=== PATIENT | female | born 1950 | race African-American/Black ===

== ENCOUNTER → 2016-03-29 | Outpatient (CLI) | payer OTHER ==
[~2016-03-29] VITALS: Ht 175.3 cm; Wt 124.1 kg
[~2016-03-29] MED LIST: AMLO-512 PO; CEPH500 PO; CLOP75 PO; CYCL10 PO; FURO20 PO; HYDR-3965 PO; INSU100V SQ; INSU100V12 SQ; METF10002 PO; METO50TA5 PO; MULT-1203 PO; SIMV-260 PO
[2016-03-29 08:29] VITALS: BP 147/79
== END | disposition home or self-care (01) ==
LOC: HBOWC 07:40
PROVIDERS: ATTEND Emergency Medicine
DX: E11.621 Type 2 diabetes mellitus with foot ulcer (principal); L97.522 Non-pressure chronic ulcer of other part of left foot with fat layer exposed; L84 Corns and callosities; E11.69 Type 2 diabetes mellitus with other specified complication; M86.8X7 Other osteomyelitis, ankle and foot; E11.22 Type 2 diabetes mellitus with diabetic chronic kidney disease; I13.0 Hypertensive heart and chronic kidney disease with heart failure and stage 1 through stage 4 chronic kidney disease, or unspecified chronic kidney disease; N18.9 Chronic kidney disease, unspecified; I50.9 Heart failure, unspecified; E11.51 Type 2 diabetes mellitus with diabetic peripheral angiopathy without gangrene; E78.5 Hyperlipidemia, unspecified; E66.9 Obesity, unspecified; M79.675 Pain in left toe(s); Z79.4 Long term (current) use of insulin; Z89.422 Acquired absence of other left toe(s)
CPT/HCPCS: 11055; 97597

== ENCOUNTER → 2016-04-04 | Outpatient (CLI) | payer OTHER ==
[2016-04-04 14:23] VITALS: BP 150/67
== END | disposition home or self-care (01) ==
LOC: HBOWC 12:19
PROVIDERS: ATTEND Emergency Medicine
DX: E11.621 Type 2 diabetes mellitus with foot ulcer (principal); L97.522 Non-pressure chronic ulcer of other part of left foot with fat layer exposed; M17.12 Unilateral primary osteoarthritis, left knee; L84 Corns and callosities; E11.22 Type 2 diabetes mellitus with diabetic chronic kidney disease; I13.0 Hypertensive heart and chronic kidney disease with heart failure and stage 1 through stage 4 chronic kidney disease, or unspecified chronic kidney disease; N18.9 Chronic kidney disease, unspecified; I50.9 Heart failure, unspecified; E78.5 Hyperlipidemia, unspecified; E66.9 Obesity, unspecified; E11.69 Type 2 diabetes mellitus with other specified complication; M86.8X7 Other osteomyelitis, ankle and foot; E11.51 Type 2 diabetes mellitus with diabetic peripheral angiopathy without gangrene; Z89.422 Acquired absence of other left toe(s); Z79.4 Long term (current) use of insulin
CPT/HCPCS: 93922; 97597

== ENCOUNTER → 2016-04-18 | Outpatient (CLI) | payer OTHER ==
[~2016-04-18] MED LIST changes: +LIDOCAINE HCL 2% 5 ML JELLY TP ONE
[2016-04-18 11:00] VITALS: BP 147/73
== END | disposition home or self-care (01) ==
LOC: HBOWC 10:14
PROVIDERS: ATTEND Emergency Medicine
DX: E11.621 Type 2 diabetes mellitus with foot ulcer (principal); L97.524 Non-pressure chronic ulcer of other part of left foot with necrosis of bone; E11.69 Type 2 diabetes mellitus with other specified complication; M86.8X7 Other osteomyelitis, ankle and foot; E11.22 Type 2 diabetes mellitus with diabetic chronic kidney disease; I12.9 Hypertensive chronic kidney disease with stage 1 through stage 4 chronic kidney disease, or unspecified chronic kidney disease; N18.9 Chronic kidney disease, unspecified; E11.51 Type 2 diabetes mellitus with diabetic peripheral angiopathy without gangrene; M17.12 Unilateral primary osteoarthritis, left knee; E66.9 Obesity, unspecified; L84 Corns and callosities
CPT/HCPCS: 97597

== ENCOUNTER → 2016-04-25 | Outpatient (CLI) | payer OTHER ==
[~2016-04-25] MED LIST changes: -LIDOCAINE HCL 2% 5 ML JELLY TP ONE
[2016-04-25 12:22] VITALS: BP 149/77
== END | disposition home or self-care (01) ==
LOC: HBOWC 10:39
PROVIDERS: ATTEND Emergency Medicine
DX: E11.621 Type 2 diabetes mellitus with foot ulcer (principal); L97.524 Non-pressure chronic ulcer of other part of left foot with necrosis of bone; E11.69 Type 2 diabetes mellitus with other specified complication; M86.8X7 Other osteomyelitis, ankle and foot; E11.40 Type 2 diabetes mellitus with diabetic neuropathy, unspecified; E11.22 Type 2 diabetes mellitus with diabetic chronic kidney disease; E11.51 Type 2 diabetes mellitus with diabetic peripheral angiopathy without gangrene; I12.9 Hypertensive chronic kidney disease with stage 1 through stage 4 chronic kidney disease, or unspecified chronic kidney disease; N18.4 Chronic kidney disease, stage 4 (severe); E66.9 Obesity, unspecified; E78.5 Hyperlipidemia, unspecified; Z79.4 Long term (current) use of insulin
CPT/HCPCS: 11042

== ENCOUNTER → 2016-05-02 | Outpatient (CLI) | payer OTHER ==
[2016-05-02 11:14] VITALS: BP 129/58
== END | disposition home or self-care (01) ==
LOC: HBOWC 10:57
PROVIDERS: ATTEND Emergency Medicine
DX: E11.621 Type 2 diabetes mellitus with foot ulcer (principal); L97.524 Non-pressure chronic ulcer of other part of left foot with necrosis of bone; E11.69 Type 2 diabetes mellitus with other specified complication; M86.8X7 Other osteomyelitis, ankle and foot; L84 Corns and callosities; E11.40 Type 2 diabetes mellitus with diabetic neuropathy, unspecified; E11.22 Type 2 diabetes mellitus with diabetic chronic kidney disease; I13.0 Hypertensive heart and chronic kidney disease with heart failure and stage 1 through stage 4 chronic kidney disease, or unspecified chronic kidney disease; N18.4 Chronic kidney disease, stage 4 (severe); I50.9 Heart failure, unspecified; Z79.4 Long term (current) use of insulin; M19.90 Unspecified osteoarthritis, unspecified site
CPT/HCPCS: 97597

== ENCOUNTER → 2016-05-09 | Outpatient (CLI) | payer OTHER ==
[~2016-05-09] MED LIST changes: -SIMV-260 PO; +SIMV20 PO
[2016-05-09 11:15] VITALS: BP 128/56
== END | disposition home or self-care (01) ==
LOC: HBOWC 10:27
PROVIDERS: ATTEND Emergency Medicine
DX: E11.621 Type 2 diabetes mellitus with foot ulcer (principal); L97.524 Non-pressure chronic ulcer of other part of left foot with necrosis of bone; E11.69 Type 2 diabetes mellitus with other specified complication; M86.8X7 Other osteomyelitis, ankle and foot; L84 Corns and callosities; E11.51 Type 2 diabetes mellitus with diabetic peripheral angiopathy without gangrene; M17.12 Unilateral primary osteoarthritis, left knee; I13.0 Hypertensive heart and chronic kidney disease with heart failure and stage 1 through stage 4 chronic kidney disease, or unspecified chronic kidney disease; E11.22 Type 2 diabetes mellitus with diabetic chronic kidney disease; N18.4 Chronic kidney disease, stage 4 (severe); I50.9 Heart failure, unspecified; E11.40 Type 2 diabetes mellitus with diabetic neuropathy, unspecified; E78.5 Hyperlipidemia, unspecified; E66.9 Obesity, unspecified; Z89.421 Acquired absence of other right toe(s); Z79.4 Long term (current) use of insulin; Z89.412 Acquired absence of left great toe; Z89.422 Acquired absence of other left toe(s)
CPT/HCPCS: 97597

== ENCOUNTER → 2016-05-31 | Outpatient (CLI) | payer OTHER ==
[2016-05-31 10:30] VITALS: BP 135/68
== END | disposition home or self-care (01) ==
LOC: HBOWC 10:11
PROVIDERS: ATTEND Emergency Medicine
DX: E11.621 Type 2 diabetes mellitus with foot ulcer (principal); L97.521 Non-pressure chronic ulcer of other part of left foot limited to breakdown of skin; E11.69 Type 2 diabetes mellitus with other specified complication; M86.8X7 Other osteomyelitis, ankle and foot; F99 Mental disorder, not otherwise specified; L84 Corns and callosities; E11.22 Type 2 diabetes mellitus with diabetic chronic kidney disease; I13.0 Hypertensive heart and chronic kidney disease with heart failure and stage 1 through stage 4 chronic kidney disease, or unspecified chronic kidney disease; N18.4 Chronic kidney disease, stage 4 (severe); I50.20 Unspecified systolic (congestive) heart failure; E11.51 Type 2 diabetes mellitus with diabetic peripheral angiopathy without gangrene; E78.5 Hyperlipidemia, unspecified; E66.9 Obesity, unspecified; Z79.4 Long term (current) use of insulin; Z89.421 Acquired absence of other right toe(s); Z89.422 Acquired absence of other left toe(s)
CPT/HCPCS: 97597

== ENCOUNTER → 2016-06-08 | Outpatient (CLI) | payer OTHER | END | disposition home or self-care (01) | LOC: RADPV 09:15 | PROVIDERS: ATTEND Emergency Medicine | DX: E11.621 Type 2 diabetes mellitus with foot ulcer (principal); L97.529 Non-pressure chronic ulcer of other part of left foot with unspecified severity; M86.8X8 Other osteomyelitis, other site; I73.9 Peripheral vascular disease, unspecified; I70.203 Unspecified atherosclerosis of native arteries of extremities, bilateral legs | CPT/HCPCS: 93880; 93925 ==

== ENCOUNTER → 2016-07-20 | Outpatient (CLI) | payer OTHER ==
[~2016-07-20] MED LIST changes: +SIMV-260 PO; -SIMV20 PO
[2016-07-20 10:50] VITALS: BP 154/76
== END | disposition home or self-care (01) ==
LOC: HBOWC 10:22
PROVIDERS: ATTEND Emergency Medicine
DX: E11.621 Type 2 diabetes mellitus with foot ulcer (principal); L97.521 Non-pressure chronic ulcer of other part of left foot limited to breakdown of skin; E11.69 Type 2 diabetes mellitus with other specified complication; M86.8X7 Other osteomyelitis, ankle and foot; E11.51 Type 2 diabetes mellitus with diabetic peripheral angiopathy without gangrene; L84 Corns and callosities; E78.5 Hyperlipidemia, unspecified; F99 Mental disorder, not otherwise specified; E66.9 Obesity, unspecified; E11.22 Type 2 diabetes mellitus with diabetic chronic kidney disease; I13.0 Hypertensive heart and chronic kidney disease with heart failure and stage 1 through stage 4 chronic kidney disease, or unspecified chronic kidney disease; N18.4 Chronic kidney disease, stage 4 (severe); I50.9 Heart failure, unspecified; Z79.4 Long term (current) use of insulin; Z89.421 Acquired absence of other right toe(s); Z89.422 Acquired absence of other left toe(s)
CPT/HCPCS: 97597

== ENCOUNTER → 2016-08-08 | Outpatient (CLI) | payer OTHER ==
[2016-08-08 10:45] VITALS: BP 123/71
== END | disposition home or self-care (01) ==
LOC: HBOWC 10:38
PROVIDERS: ATTEND Emergency Medicine Undersea and Hyperbaric Medicine
DX: E11.621 Type 2 diabetes mellitus with foot ulcer (principal); L97.521 Non-pressure chronic ulcer of other part of left foot limited to breakdown of skin; E11.22 Type 2 diabetes mellitus with diabetic chronic kidney disease; I13.0 Hypertensive heart and chronic kidney disease with heart failure and stage 1 through stage 4 chronic kidney disease, or unspecified chronic kidney disease; N18.4 Chronic kidney disease, stage 4 (severe); I50.9 Heart failure, unspecified; E66.9 Obesity, unspecified; E11.69 Type 2 diabetes mellitus with other specified complication; M86.8X7 Other osteomyelitis, ankle and foot; E11.51 Type 2 diabetes mellitus with diabetic peripheral angiopathy without gangrene; L84 Corns and callosities; Z89.422 Acquired absence of other left toe(s); Z79.4 Long term (current) use of insulin; Z89.421 Acquired absence of other right toe(s)
CPT/HCPCS: 97597

== ENCOUNTER → 2016-09-03 | Outpatient (CLI) | payer OTHER ==
[2016-09-03 11:39] VITALS: BP 142/67
== END | disposition home or self-care (01) ==
LOC: HBOWC 10:46
PROVIDERS: ATTEND Emergency Medicine Undersea and Hyperbaric Medicine
DX: E11.621 Type 2 diabetes mellitus with foot ulcer (principal); L97.521 Non-pressure chronic ulcer of other part of left foot limited to breakdown of skin; E11.22 Type 2 diabetes mellitus with diabetic chronic kidney disease; I13.0 Hypertensive heart and chronic kidney disease with heart failure and stage 1 through stage 4 chronic kidney disease, or unspecified chronic kidney disease; N18.4 Chronic kidney disease, stage 4 (severe); I50.9 Heart failure, unspecified; E66.9 Obesity, unspecified; E11.69 Type 2 diabetes mellitus with other specified complication; M86.8X7 Other osteomyelitis, ankle and foot; E11.51 Type 2 diabetes mellitus with diabetic peripheral angiopathy without gangrene; E78.5 Hyperlipidemia, unspecified; Z79.4 Long term (current) use of insulin; Z89.422 Acquired absence of other left toe(s); Z89.421 Acquired absence of other right toe(s)
CPT/HCPCS: 97597

== ENCOUNTER → 2016-09-17 | Outpatient (CLI) | payer OTHER ==
[2016-09-17 11:37] VITALS: BP 154/69
== END | disposition home or self-care (01) ==
LOC: HBOWC 10:47
PROVIDERS: ATTEND Emergency Medicine
DX: E11.621 Type 2 diabetes mellitus with foot ulcer (principal); L97.521 Non-pressure chronic ulcer of other part of left foot limited to breakdown of skin; E11.22 Type 2 diabetes mellitus with diabetic chronic kidney disease; I13.0 Hypertensive heart and chronic kidney disease with heart failure and stage 1 through stage 4 chronic kidney disease, or unspecified chronic kidney disease; N18.4 Chronic kidney disease, stage 4 (severe); I50.9 Heart failure, unspecified; E78.5 Hyperlipidemia, unspecified; E66.9 Obesity, unspecified; E11.69 Type 2 diabetes mellitus with other specified complication; M86.8X7 Other osteomyelitis, ankle and foot; E11.51 Type 2 diabetes mellitus with diabetic peripheral angiopathy without gangrene; B35.1 Tinea unguium; Z89.422 Acquired absence of other left toe(s); Z79.4 Long term (current) use of insulin; Z89.421 Acquired absence of other right toe(s); L84 Corns and callosities
CPT/HCPCS: 11720; 97597

== ENCOUNTER → 2016-10-01 | Outpatient (CLI) | payer OTHER ==
[2016-10-01 10:55] VITALS: BP 143/60
== END | disposition home or self-care (01) ==
LOC: HBOWC 10:43
PROVIDERS: ATTEND Emergency Medicine
DX: E11.621 Type 2 diabetes mellitus with foot ulcer (principal); L97.521 Non-pressure chronic ulcer of other part of left foot limited to breakdown of skin; E11.22 Type 2 diabetes mellitus with diabetic chronic kidney disease; E11.51 Type 2 diabetes mellitus with diabetic peripheral angiopathy without gangrene; I13.0 Hypertensive heart and chronic kidney disease with heart failure and stage 1 through stage 4 chronic kidney disease, or unspecified chronic kidney disease; N18.4 Chronic kidney disease, stage 4 (severe); I50.9 Heart failure, unspecified; E78.5 Hyperlipidemia, unspecified; E66.9 Obesity, unspecified; E11.69 Type 2 diabetes mellitus with other specified complication; M86.8X7 Other osteomyelitis, ankle and foot; B35.1 Tinea unguium; L84 Corns and callosities; Z89.421 Acquired absence of other right toe(s); Z89.422 Acquired absence of other left toe(s); Z79.4 Long term (current) use of insulin

== ENCOUNTER 2017-02-07 08:36 | Inpatient (IN) | payer OTHER ==
[~2017-02-07] VITALS: Ht 172.7 cm; Wt 128.1 kg
[~2017-02-07 08:36] MED LIST changes: +METO50TA18 PO; -METO50TA5 PO
[2017-02-07] MEDS ORDERED: LISI-662 PO (08:50)
[2017-02-07] MEDS ORDERED: BACL10TA PO (08:50)
[2017-02-07] MEDS ORDERED: GABA-531 PO ×2 (08:52)
[2017-02-07 09:06] LABS: ABG A-A DIFF O2 387.9 mmHg (10-20.0); ABG BASE EXCESS -6.5 mmol/L (-2.0-3.0); ABG HCO3 19.3 mmol/L (22.0-26.0); ABG OXYHEMOGLOBIN 93.7 % (94.0-100.0); ABG PCO2 46 mmHg (35-45); ABG PH 7.265 (7.35-7.450)
[2017-02-07 09:07] LABS: ALLEN TEST, BLOOD GAS Positive; IPAP, BG 14 cm H2O
[2017-02-07 09:07] LABS: BASOPHILS # (AUTO) 0.03 K/uL (0.00-0.20); BASOPHILS % (AUTO) 0.3 % (0.0-2.0); EOSINOPHILS # (AUTO) 0.13 K/uL (0.00-0.70); EOSINOPHILS % (AUTO) 1.02 % (1.0-6.0); HEMATOCRIT 38.5 % (36-46); HEMOGLOBIN 12.4 g/dL (12.0-16.0); LYMPHOCYTES # (AUTO) 4.8 K/uL (1.0-4.8); LYMPHOCYTES % (AUTO) 37.3 % (22.0-44.0); MEAN CORPUSCULAR HEMOGLOBIN 30.3 pg (26.0-34.0); MEAN CORPUSCULAR HGB CONC 32.1 G/dL (31.0-37.0); MEAN CORPUSCULAR VOLUME 94 fL (80-100); MONOCYTES # (AUTO) 0.7 K/uL (0.1-1.0); MONOCYTES % (AUTO) 5.8 % (2.0-9.0); NEUTROPHILS # (AUTO) 7.1 K/uL (1.8-7.7); NEUTROPHILS % (AUTO) 55.7 % (40.0-70.0); PLATELET COUNT (AUTO) 312 K/uL (150-450); RED BLOOD CELL COUNT(AUTO) 4.09 MIL/uL (4.00-5.20); RED CELL DISTRIBUTION WIDTH 15.3 % (11.5-14.5); WHITE BLOOD COUNT (AUTO) 12.8 K/uL (4.5-11.0)
[2017-02-07 09:16] LABS: CALCIUM, TOTAL 9.5 mg/dL (8.8-10.5); CREATININE 1.38 mg/dL (0.60-1.30); POTASSIUM 4.3 mmol/L (3.5-5.1)
[2017-02-07 09:17] LABS: INR 0.9 (0.9-1.1); PROTHROMBIN TIME 9.7 SEC (9.4-11.6)
[2017-02-07] MEDS ORDERED: IOVERSOL 350 MG/ML 150 ML VIAL ONE (09:41)
[2017-02-07 09:42] LABS: ALBUMIN 3.2 g/dL (3.4-5.0); BILIRUBIN,TOTAL 0.5 mg/dL (0.1-1.0); CREATINE KINASE MB 7.3 ng/mL (0-5); TOTAL PROTEIN, SERUM 8.1 g/dL (6.4-8.2)
[2017-02-07] MEDS ORDERED: FUROSEMIDE 40 MG/4 ML VIAL IVP ONE (09:45)
[2017-02-07 09:48] LABS: APPEARANCE,URINE CLEAR (CLEAR); GLUCOSE, URINE (UA) 100 mg/dL (NEGATIVE); INFLUENZA TYPE B NEGATIVE FOR TYPE B (NEGATIVE); KETONES,URINE NEGATIVE (NEGATIVE); LEUKOCYTE ESTERASE ,URINE SMALL (NEGATIVE); OCCULT BLOOD,URINE LARGE (NEGATIVE); PROTEIN,URINE POS 1+ (NEGATIVE)
[2017-02-07 09:49] LABS: ADD UA MICROSCOPIC YES
[2017-02-07 10:01] LABS: SQUAMOUS EPITHELIAL CELL,UR Few /LPF (None Seen)
[2017-02-07] MEDS ORDERED: ALBUTEROL SULFATE 2.5 MG/0.5 ML NEB SOLUTION NEB PRN (11:00)
[2017-02-07] MEDS ORDERED: BISACODYL 10 MG RECTAL RECTAL SUPPOSITORY PR PRN (11:00)
[2017-02-07] MEDS ORDERED: IPRATROPIUM BROMIDE 0.5 MG/2.5 ML NEB SOLUTION NEB PRN (11:00)
[2017-02-07] MEDS ORDERED: METOPROLOL TARTRATE 25 MG TABLET PO SCH (11:15)
[2017-02-07] MEDS ORDERED: DEXTROSE 50%-WATER 25 GM/50 ML SYRINGE IVP PRN (11:15)
[2017-02-07] MEDS: ACETAMINOPHEN 325 MG TABLET PO PRN (12:07)
[2017-02-07 12:19] VITALS: BP 117/74
[2017-02-07] MEDS: INSULIN ASPART 100 UNITS/ML SQ PRN ×2 (14:00→20:30)
[2017-02-07] MEDS ORDERED: PNEUMOCOCCAL VACCINE POLYVALENT 0.5 ML VIAL [PPSV23] IM ONE (14:15)
[2017-02-07] MEDS ORDERED: INFLUENZA VIRUS VACCINE QVS 2017-18 (3YR+)/PF 60 MCG/0.5 ML SYRINGE IM ONE (14:15)
[2017-02-07] MEDS ORDERED: SODIUM CHLORIDE 0.9% 250 ML IV ONE (14:56)
[2017-02-07 14:59] VITALS: BP 122/66
[2017-02-07] MEDS: HydrALAZINE HCL 10 MG TABLET PO SCH ×2 (15:40→20:09)
[2017-02-07] MEDS: BUMETANIDE 0.25 MG/ML 4 ML VIAL IVP SCH (15:40)
[2017-02-07] MEDS: ISOSORBIDE DINITRATE 20 MG TABLET PO SCH ×2 (15:40→20:09)
[2017-02-07] MEDS: HEPARIN SODIUM,PORCINE 5,000 UNITS/ML VIAL SQ SCH (15:41)
[2017-02-07] MEDS: CefTRIAXone 1 GM/DEXTROSE 50 ML IV SCH (15:41)
[2017-02-07 19:31] VITALS: BP 105/48
[2017-02-07] MEDS: ATORVASTATIN CALCIUM 20 MG TABLET PO SCH (20:09)
[2017-02-07] MEDS: DOCUSATE SODIUM 100 MG CAPSULE PO SCH (20:09)
[2017-02-07] MEDS: INSULIN DETEMIR 100 UNITS/ML SQ SCH (20:28)
[2017-02-07] MEDS ORDERED: FUROSEMIDE 20 MG/2 ML VIAL IVP SCH (21:00)
[2017-02-07] MEDS ORDERED: ATORVASTATIN CALCIUM 20 MG TABLET PO SCH (21:00)
[2017-02-07 23:34] VITALS: BP 113/51
[2017-02-08] MEDS: HEPARIN SODIUM,PORCINE 5,000 UNITS/ML VIAL SQ SCH ×3 (00:01→16:53)
[2017-02-08] MEDS: ACETAMINOPHEN 325 MG TABLET PO PRN ×3 (04:18→20:51)
[2017-02-08 04:47] VITALS: BP 102/76
[2017-02-08 05:28] LABS: GLUCOSE,POINT OF CARE 119 MG/DL (70-110)
[2017-02-08 07:37] VITALS: BP 128/68
[2017-02-08] MEDS: DOCUSATE SODIUM 100 MG CAPSULE PO SCH ×2 (08:29→21:10)
[2017-02-08] MEDS: PANTOPRAZOLE SODIUM 40 MG DR TABLET PO SCH (08:29)
[2017-02-08] MEDS: HydrALAZINE HCL 10 MG TABLET PO SCH ×3 (08:29→20:31)
[2017-02-08] MEDS: ISOSORBIDE DINITRATE 20 MG TABLET PO SCH ×3 (08:30→21:00)
[2017-02-08] MEDS: BUMETANIDE 0.25 MG/ML 4 ML VIAL IVP SCH ×2 (08:30)
[2017-02-08] MEDS: ASPIRIN 81 MG CHEWABLE TABLET PO SCH (08:30)
[2017-02-08 10:01] LABS: CALCIUM, TOTAL 8.8 mg/dL (8.8-10.5); CREATININE 1.39 mg/dL (0.60-1.30)
[2017-02-08 11:11] VITALS: BP 104/62
[2017-02-08 12:27] LABS: GLUCOSE,POINT OF CARE 156 MG/DL (70-110)
[2017-02-08 12:27] LABS: GLUCOSE COMMENT 1 Received Meds; GLUCOSE,POINT OF CARE 206 MG/DL (70-110)
[2017-02-08 12:27] LABS: GLUCOSE,POINT OF CARE 118 MG/DL (70-110)
[2017-02-08] MEDS: INSULIN ASPART 100 UNITS/ML SQ PRN ×3 (13:41→21:12)
[2017-02-08] MEDS: CefTRIAXone 1 GM/DEXTROSE 50 ML IV SCH (13:42)
[2017-02-08 15:14] VITALS: BP 135/67
[2017-02-08 19:32] VITALS: BP 107/56
[2017-02-08 19:47] LABS: GLUCOSE,POINT OF CARE 195 MG/DL (70-110)
[2017-02-08 19:47] LABS: GLUCOSE,POINT OF CARE 213 MG/DL (70-110)
[2017-02-08] MEDS: BUMETANIDE 1 MG TABLET PO SCH (20:51)
[2017-02-08] MEDS: ATORVASTATIN CALCIUM 20 MG TABLET PO SCH (21:10)
[2017-02-08] MEDS: INSULIN DETEMIR 100 UNITS/ML SQ SCH (21:30)
[2017-02-08 23:35] VITALS: BP 122/65
[2017-02-09] MEDS: ISOSORBIDE DINITRATE 20 MG TABLET PO SCH ×2 (00:22→08:42)
[2017-02-09] MEDS: HydrALAZINE HCL 10 MG TABLET PO SCH ×2 (00:22→08:42)
[2017-02-09] MEDS: HEPARIN SODIUM,PORCINE 5,000 UNITS/ML VIAL SQ SCH ×2 (00:23→08:42)
[2017-02-09] MEDS ORDERED: GuaiFENesin/CODEINE [SUGAR FREE] 200-20MG/10 ML SYRUP UDCUP PO PRN (02:15)
[2017-02-09 04:06] VITALS: BP 141/71
[2017-02-09 05:45] LABS: BASOPHILS % (AUTO) 1.1 % (0.0-2.0); EOSINOPHILS % (AUTO) 1.9 % (1.0-6.0); HEMATOCRIT 31.3 % (36-46); HEMOGLOBIN 10.7 g/dL (12.0-16.0); LYMPHOCYTES # (AUTO) 2.5 K/uL (1.0-4.8); LYMPHOCYTES % (AUTO) 29.8 % (22.0-44.0); MEAN CORPUSCULAR HEMOGLOBIN 31.5 pg (26.0-34.0); MEAN CORPUSCULAR VOLUME 93 fL (80-100); MONOCYTES # (AUTO) 0.8 K/uL (0.1-1.0); MONOCYTES % (AUTO) 9.6 % (2.0-9.0); NEUTROPHILS # (AUTO) 4.8 K/uL (1.8-7.7); NEUTROPHILS % (AUTO) 57.6 % (40.0-70.0); PLATELET COUNT (AUTO) 280 K/uL (150-450); RED BLOOD CELL COUNT(AUTO) 3.38 MIL/uL (4.00-5.20); RED CELL DISTRIBUTION WIDTH 14.8 % (11.5-14.5); WHITE BLOOD COUNT (AUTO) 8.4 K/uL (4.5-11.0)
[2017-02-09 05:47] LABS: GLUCOSE COMMENT 1 Received Meds; GLUCOSE,POINT OF CARE 259 MG/DL (70-110)
[2017-02-09 05:58] LABS: CALCIUM, TOTAL 8.8 mg/dL (8.8-10.5); CREATININE 1.45 mg/dL (0.60-1.30)
[2017-02-09] MEDS: INSULIN ASPART 100 UNITS/ML SQ PRN ×2 (06:08→11:44)
[2017-02-09 07:21] VITALS: BP 138/76
[2017-02-09] MEDS: BUMETANIDE 1 MG TABLET PO SCH (08:42)
[2017-02-09] MEDS: DOCUSATE SODIUM 100 MG CAPSULE PO SCH (08:42)
[2017-02-09] MEDS: ASPIRIN 81 MG CHEWABLE TABLET PO SCH (08:42)
[2017-02-09] MEDS: ACETAMINOPHEN 325 MG TABLET PO PRN ×2 (08:43→13:39)
[2017-02-09] MEDS: PANTOPRAZOLE SODIUM 40 MG DR TABLET PO SCH (08:43)
[2017-02-09] MEDS ORDERED: BUME1TAB17 PO (11:16)
[2017-02-09] MEDS ORDERED: INSU100V12 SQ (11:17)
[2017-02-09 11:34] VITALS: BP 112/57
[2017-02-09] MEDS: CefTRIAXone 1 GM/DEXTROSE 50 ML IV SCH (11:43)
[2017-02-09 13:53] LABS: GLUCOSE COMMENT 1 Received Meds; GLUCOSE,POINT OF CARE 191 MG/DL (70-110)
[2017-02-09 14:52] LABS: GLUCOSE COMMENT 1 Received Meds; GLUCOSE,POINT OF CARE 209 MG/DL (70-110)
[2017-03-05] MEDS ORDERED: METO25XL PO (11:55)
== END 2017-02-09 15:30 | disposition home or self-care (01) | DRG 291 ==
LOC: EMS 08:37 → 5S 11:45 → EMS 11:45 → 5S 12:12
PROVIDERS: ADMIT Internal Medicine; ATTEND Internal Medicine
PROC: 5A09357 Assistance with Respiratory Ventilation, Less than 24 Consecutive Hours, Continuous Positive Airway Pressure (ICD-10-PCS; principal; 2017-02-07)
DX: I13.0 Hypertensive heart and chronic kidney disease with heart failure and stage 1 through stage 4 chronic kidney disease, or unspecified chronic kidney disease (principal); J96.01 Acute respiratory failure with hypoxia; E87.2 Acidosis; I50.23 Acute on chronic systolic (congestive) heart failure; Z68.41 Body mass index [BMI] 40.0-44.9, adult; E11.22 Type 2 diabetes mellitus with diabetic chronic kidney disease; E11.51 Type 2 diabetes mellitus with diabetic peripheral angiopathy without gangrene; I42.9 Cardiomyopathy, unspecified; E66.01 Morbid (severe) obesity due to excess calories; E11.65 Type 2 diabetes mellitus with hyperglycemia; E78.5 Hyperlipidemia, unspecified; F41.1 Generalized anxiety disorder; I25.10 Atherosclerotic heart disease of native coronary artery without angina pectoris; N18.3 Chronic kidney disease, stage 3 (moderate); Z83.3 Family history of diabetes mellitus; Z87.891 Personal history of nicotine dependence; Z90.710 Acquired absence of both cervix and uterus; Z79.02 Long term (current) use of antithrombotics/antiplatelets; Z79.84 Long term (current) use of oral hypoglycemic drugs; Z79.899 Other long term (current) drug therapy; Z79.891 Long term (current) use of opiate analgesic; Z90.49 Acquired absence of other specified parts of digestive tract
CPT/HCPCS: 51702; 71275; 82805; 82962; 87086; 87804; 90471; 93005; 93306; 94660; 96365; 96366; 96372; 96374; 96375; 99291; J0696; J1644; J1940; J3490; J7050

== ENCOUNTER 2017-05-06 10:01 | Emergency (ER) | payer OTHER ==
[~2017-05-06] VITALS: Ht 175.3 cm; Wt 120.0 kg
[~2017-05-06 10:01] MED LIST changes: +BACL10TA PO; +BUME1TAB17 PO; -CEPH500 PO; -CYCL10 PO; -FURO20 PO; -HYDR-3965 PO; -METF10002 PO; +METO25XL PO; -METO50TA18 PO; -MULT-1203 PO
[2017-05-06 10:32] LABS: GLUCOSE,POINT OF CARE 156 MG/DL (70-110)
[2017-05-06] MEDS ORDERED: METO25 PO (10:56)
[2017-05-06] MEDS ORDERED: ASPI-1182 PO (10:56)
[2017-05-06] MEDS ORDERED: FAMO20 PO (10:56)
[2017-05-06] MEDS ORDERED: BUSP5TAB20 PO (10:56)
[2017-05-06] MEDS ORDERED: ATOR40TA28 PO (10:56)
[2017-05-06] MEDS ORDERED: LORazepam 2 MG TABLET PO ONE (11:15)
[2017-05-06 12:38] VITALS: BP 149/73
== END 2017-05-06 12:59 | disposition home or self-care (01) ==
LOC: EMS 10:03
DX: F41.9 Anxiety disorder, unspecified (principal); I25.10 Atherosclerotic heart disease of native coronary artery without angina pectoris; E11.9 Type 2 diabetes mellitus without complications; E78.00 Pure hypercholesterolemia, unspecified; I10 Essential (primary) hypertension; Z95.1 Presence of aortocoronary bypass graft; Z79.4 Long term (current) use of insulin; Z79.82 Long term (current) use of aspirin
CPT/HCPCS: 82962; 99284

== ENCOUNTER 2017-05-20 05:57 | Emergency (ER) | payer OTHER ==
[~2017-05-20] VITALS: Ht 172.7 cm; Wt 118.2 kg
[~2017-05-20 05:57] MED LIST changes: +ASPI-1182 PO; +ATOR40TA28 PO; -BACL10TA PO; +BUSP5TAB20 PO; -CLOP75 PO; +FAMO20 PO; +METO25 PO; -METO25XL PO; -SIMV-260 PO
[2017-05-20 06:12] LABS: GLUCOSE,POINT OF CARE 189 MG/DL (70-110)
[2017-05-20] MEDS ORDERED: INSLAN SQ (06:13)
[2017-05-20] MEDS ORDERED: INSREG SQ (06:13)
[2017-05-20] MEDS ORDERED: PIPERACILLIN/TAZO 3.375 GM/D5W 50 ML IV ONE (06:30)
[2017-05-20] MEDS ORDERED: VANCOMYCIN HCL 1 GM/D5% WATER 200 ML IV ONE (06:30)
[2017-05-20] MEDS ORDERED: HYDROCODONE/ACETAMINOPHEN 5-325 MG TABLET PO ONE (06:30)
[2017-05-20 07:11] LABS: BASOPHILS % (AUTO) 0.6 % (0.0-2.0); EOSINOPHILS % (AUTO) 0.7 % (1.0-6.0); HEMATOCRIT 32.9 % (36-46); HEMOGLOBIN 10.8 g/dL (12.0-16.0); LYMPHOCYTES # (AUTO) 2.5 K/uL (1.0-4.8); MEAN CORPUSCULAR HEMOGLOBIN 27.2 pg (26.0-34.0); MEAN CORPUSCULAR HGB CONC 32.8 G/dL (31.0-37.0); MEAN CORPUSCULAR VOLUME 83 fL (80-100); MONOCYTES # (AUTO) 1.7 K/uL (0.1-1.0); MONOCYTES % (AUTO) 8.1 % (2.0-9.0); NEUTROPHILS # (AUTO) 16.2 K/uL (1.8-7.7); NEUTROPHILS % (AUTO) 78.6 % (40.0-70.0); PLATELET COUNT (AUTO) 344 K/uL (150-450); RED BLOOD CELL COUNT(AUTO) 3.97 MIL/uL (4.00-5.20); RED CELL DISTRIBUTION WIDTH 15.3 % (11.5-14.5)
[2017-05-20] MEDS ORDERED: IOVERSOL 350 MG/ML 100 ML VIAL ONE (07:15)
[2017-05-20 07:32] LABS: CALCIUM, TOTAL 9.2 mg/dL (8.8-10.5); CREATININE 1.17 mg/dL (0.60-1.30); POTASSIUM 3.3 mmol/L (3.5-5.1)
[2017-05-20 07:36] LABS: ALBUMIN 2.5 g/dL (3.4-5.0); BILIRUBIN,TOTAL 0.6 mg/dL (0.1-1.0); TOTAL PROTEIN, SERUM 7.8 g/dL (6.4-8.2)
[2017-05-20 07:57] LABS: LACTIC ACID 1.5 mmol/L (0.4-2.0)
[2017-05-20] MEDS ORDERED: KETOROLAC TROMETHAMINE 30 MG/ML VIAL IVP ONE (10:45)
[2017-05-20 11:10] VITALS: BP 123/61
== END 2017-05-20 11:56 | disposition short-term general hospital (02) ==
LOC: EMS 05:58
DX: L02.416 Cutaneous abscess of left lower limb (principal); I25.10 Atherosclerotic heart disease of native coronary artery without angina pectoris; E11.9 Type 2 diabetes mellitus without complications; E78.00 Pure hypercholesterolemia, unspecified; I10 Essential (primary) hypertension; Z95.1 Presence of aortocoronary bypass graft; Z79.82 Long term (current) use of aspirin; Z79.4 Long term (current) use of insulin
CPT/HCPCS: 36415; 73701; 80053; 82962; 83605; 85025; 87040; 93005; 96365; 96366; 96368; 96375; 99285; J1885; J2543; J3370; Q9967

== ENCOUNTER 2017-07-09 06:58 | Emergency (ER) | payer OTHER ==
[~2017-07-09] VITALS: Ht 175.3 cm; Wt 118.2 kg
[~2017-07-09 06:58] MED LIST changes: +INSLAN SQ; +INSREG SQ; -INSU100V SQ; -INSU100V12 SQ
[2017-07-09 07:38] LABS: BASOPHILS % (AUTO) 0.5 % (0.0-2.0); EOSINOPHILS % (AUTO) 1.8 % (1.0-6.0); HEMATOCRIT 36.1 % (36-46); HEMOGLOBIN 12.3 g/dL (12.0-16.0); LYMPHOCYTES # (AUTO) 2.4 K/uL (1.0-4.8); LYMPHOCYTES % (AUTO) 24.7 % (22.0-44.0); MEAN CORPUSCULAR HEMOGLOBIN 27.8 pg (26.0-34.0); MEAN CORPUSCULAR HGB CONC 34.1 G/dL (31.0-37.0); MEAN CORPUSCULAR VOLUME 82 fL (80-100); MONOCYTES # (AUTO) 0.8 K/uL (0.1-1.0); MONOCYTES % (AUTO) 7.8 % (2.0-9.0); NEUTROPHILS # (AUTO) 6.3 K/uL (1.8-7.7); NEUTROPHILS % (AUTO) 65.2 % (40.0-70.0); PLATELET COUNT (AUTO) 330 K/uL (150-450); RED BLOOD CELL COUNT(AUTO) 4.43 MIL/uL (4.00-5.20); RED CELL DISTRIBUTION WIDTH 18.1 % (11.5-14.5)
[2017-07-09 07:49] LABS: INR 0.9 (0.9-1.1); PROTHROMBIN TIME 9.8 SEC (9.4-11.6)
[2017-07-09 07:51] LABS: CALCIUM, TOTAL 9.4 mg/dL (8.8-10.5); CREATININE 1.14 mg/dL (0.60-1.30); POTASSIUM 3.9 mmol/L (3.5-5.1)
[2017-07-09 07:52] LABS: GLUCOSE,POINT OF CARE 82 MG/DL (70-110)
[2017-07-09 07:58] LABS: ALBUMIN 3.1 g/dL (3.4-5.0); BILIRUBIN,TOTAL 0.7 mg/dL (0.1-1.0); TOTAL PROTEIN, SERUM 8.4 g/dL (6.4-8.2)
[2017-07-09 11:35] VITALS: BP 147/76
== END 2017-07-09 11:38 | disposition home or self-care (01) ==
LOC: EMS 07:00
DX: J98.01 Acute bronchospasm (principal); F41.9 Anxiety disorder, unspecified; I11.0 Hypertensive heart disease with heart failure; I50.9 Heart failure, unspecified; E78.00 Pure hypercholesterolemia, unspecified; E11.9 Type 2 diabetes mellitus without complications; I25.10 Atherosclerotic heart disease of native coronary artery without angina pectoris
CPT/HCPCS: 93005; 99285

== ENCOUNTER 2017-07-14 13:51 | Inpatient (IN) | payer OTHER ==
[~2017-07-14] VITALS: Ht 172.7 cm; Wt 118.8 kg
[2017-07-14 14:18] LABS: GLUCOSE,POINT OF CARE 296 MG/DL (70-110)
[2017-07-14] MEDS ORDERED: 0.9% SODIUM CHLORIDE 10 ML SYRINGE IVP PRN ×3 (15:45→20:15)
[2017-07-14] MEDS ORDERED: VANCOMYCIN HCL 1 GM/D5% WATER 200 ML IV ONE (15:45)
[2017-07-14] MEDS ORDERED: PIPERACILLIN/TAZO 3.375 GM/D5W 50 ML IV ONE (15:45)
[2017-07-14 17:09] LABS: BASOPHILS % (AUTO) 0.4 % (0.0-2.0); EOSINOPHILS % (AUTO) 1.7 % (1.0-6.0); HEMATOCRIT 34.8 % (36-46); HEMOGLOBIN 11.5 g/dL (12.0-16.0); LYMPHOCYTES # (AUTO) 2.1 K/uL (1.0-4.8); MEAN CORPUSCULAR HGB CONC 33.1 G/dL (31.0-37.0); MEAN CORPUSCULAR VOLUME 82 fL (80-100); MONOCYTES # (AUTO) 1.4 K/uL (0.1-1.0); MONOCYTES % (AUTO) 11.4 % (2.0-9.0); NEUTROPHILS # (AUTO) 8.1 K/uL (1.8-7.7); NEUTROPHILS % (AUTO) 68.5 % (40.0-70.0); PLATELET COUNT (AUTO) 336 K/uL (150-450); RED BLOOD CELL COUNT(AUTO) 4.26 MIL/uL (4.00-5.20); RED CELL DISTRIBUTION WIDTH 18.2 % (11.5-14.5)
[2017-07-14 17:22] LABS: ANION GAP 10 mmol/L (8-16); CALCIUM, TOTAL 8.7 mg/dL (8.8-10.5); CARBON DIOXIDE 28 mmol/L (22-29); CHLORIDE 100 mmol/L (98-107); CREATININE 1.35 mg/dL (0.60-1.30); GLOMERULAR FILTR. RATE CALC 47 mL/min (>60); GLUCOSE,RANDOM 211 mg/dL (70-110); POTASSIUM 3.7 mmol/L (3.5-5.1); SODIUM SERUM 138 mmol/L (136-145); UREA NITROGEN, BLOOD 30 mg/dL (7-18)
[2017-07-14 17:33] LABS: LACTIC ACID 1.1 mmol/L (0.4-2.0)
[2017-07-14 17:42] LABS: ALANINE AMINOTRANSFERASE 26 U/L (12-78); ALBUMIN 2.9 g/dL (3.4-5.0); ALKALINE PHOSPHATASE 147 U/L (46-116); ASPARTATE AMINOTRANSFERASE 24 U/L (15-37); BILIRUBIN,TOTAL 0.5 mg/dL (0.1-1.0); CREATINE KINASE, TOTAL 490 U/L (26-192); TOTAL PROTEIN, SERUM 8.7 g/dL (6.4-8.2)
[2017-07-14 18:41] LABS: CREATINE KINASE MB 3.2 ng/mL (0-5)
[2017-07-14] MEDS ORDERED: ONDANSETRON HCL 4 MG/2 ML VIAL IVP PRN ×2 (19:30→20:15)
[2017-07-14] MEDS ORDERED: ACETAMINOPHEN 325 MG TABLET PO PRN ×2 (19:30→20:15)
[2017-07-14] MEDS ORDERED: DEXTROSE 50%-WATER 25 GM/50 ML SYRINGE IVP PRN (20:00)
[2017-07-14] MEDS ORDERED: SODIUM CHLORIDE 0.9% 1,000 ML IV SCH (20:00)
[2017-07-14] MEDS ORDERED: MAGNESIUM HYDROXIDE SUSPENSION 30 ML UDCUP PO PRN (20:15)
[2017-07-14] MEDS ORDERED: ALBUTEROL SULFATE 2.5 MG/0.5 ML NEB SOLUTION NEB PRN (20:15)
[2017-07-14] MEDS ORDERED: MORPHINE SULFATE 4 MG/ML SYRINGE IVP PRN (20:15)
[2017-07-14] MEDS ORDERED: BISACODYL 10 MG RECTAL RECTAL SUPPOSITORY PR PRN (20:15)
[2017-07-14] MEDS ORDERED: IPRATROPIUM BROMIDE 0.5 MG/2.5 ML NEB SOLUTION NEB PRN (20:15)
[2017-07-14 20:46] LABS: B-TYPE NATRIURETIC PEPTIDE 198 pg/mL (0-100)
[2017-07-14 21:16] LABS: ERYTHROCYTE SEDIMENTATION RATE 80 MM/HR (0-20)
[2017-07-14 21:36] VITALS: BP 111/54
[2017-07-14 23:25] VITALS: BP 110/57
[2017-07-14] MEDS: BusPIRone HCL 5 MG TABLET PO SCH (23:33)
[2017-07-14] MEDS: METOPROLOL TARTRATE 25 MG TABLET PO SCH (23:33)
[2017-07-14] MEDS: ATORVASTATIN CALCIUM 40 MG TABLET PO SCH (23:33)
[2017-07-14] MEDS: HYDROCODONE/ACETAMINOPHEN 5-325 MG TABLET PO PRN (23:34)
[2017-07-14] MEDS: HEPARIN SODIUM,PORCINE 5,000 UNITS/ML VIAL SQ SCH (23:37)
[2017-07-14] MEDS: FAMOTIDINE 20 MG TABLET PO SCH (23:46)
[2017-07-14] MEDS: INSULIN LISPRO 100 UNITS/ML SQ PRN (23:51)
[2017-07-14] MEDS ORDERED: SODIUM CHLORIDE 0.9% 100 ML ONE (23:58)
[2017-07-15] MEDS: PIPERACILLIN/TAZO 3.375 GM/D5W 50 ML IV SCH ×5 (00:03→23:07)
[2017-07-15 04:48] VITALS: BP 107/53
[2017-07-15] MEDS: INSULIN LISPRO 100 UNITS/ML SQ PRN ×4 (06:19→20:53)
[2017-07-15 07:16] VITALS: BP 139/66
[2017-07-15 07:44] LABS: BASOPHILS % (AUTO) 0.4 % (0.0-2.0); EOSINOPHILS % (AUTO) 2.3 % (1.0-6.0); HEMATOCRIT 30.8 % (36-46); HEMOGLOBIN 10.2 g/dL (12.0-16.0); LYMPHOCYTES % (AUTO) 20.4 % (22.0-44.0); MEAN CORPUSCULAR HGB CONC 33.3 G/dL (31.0-37.0); MEAN CORPUSCULAR VOLUME 81 fL (80-100); MONOCYTES # (AUTO) 1.3 K/uL (0.1-1.0); MONOCYTES % (AUTO) 13.2 % (2.0-9.0); NEUTROPHILS # (AUTO) 6.2 K/uL (1.8-7.7); NEUTROPHILS % (AUTO) 63.7 % (40.0-70.0); PLATELET COUNT (AUTO) 270 K/uL (150-450); RED BLOOD CELL COUNT(AUTO) 3.79 MIL/uL (4.00-5.20); RED CELL DISTRIBUTION WIDTH 18.4 % (11.5-14.5)
[2017-07-15] MEDS: ASPIRIN 81 MG EC TABLET PO SCH (07:46)
[2017-07-15] MEDS: AmLODIPine BESYLATE 10 MG TABLET PO SCH (07:46)
[2017-07-15] MEDS: BusPIRone HCL 5 MG TABLET PO SCH ×2 (07:46→21:15)
[2017-07-15] MEDS: HEPARIN SODIUM,PORCINE 5,000 UNITS/ML VIAL SQ SCH ×2 (07:46→20:23)
[2017-07-15] MEDS: METOPROLOL TARTRATE 25 MG TABLET PO SCH ×2 (07:46→20:38)
[2017-07-15] MEDS: VANCOMYCIN HCL 750 MG in DEXTROSE 5%-WATER 250 ML IV SCH ×2 (08:00→20:22)
[2017-07-15 08:15] LABS: ALBUMIN 2.5 g/dL (3.4-5.0); BILIRUBIN,TOTAL 0.7 mg/dL (0.1-1.0); CALCIUM, TOTAL 8.6 mg/dL (8.8-10.5); CREATININE 1.27 mg/dL (0.60-1.30); MAGNESIUM 2.1 mg/dL (1.80-2.40); PHOSPHORUS 3.7 mg/dL (2.5-4.9); POTASSIUM 3.6 mmol/L (3.5-5.1); TOTAL PROTEIN, SERUM 7.7 g/dL (6.4-8.2)
[2017-07-15] MEDS: FAMOTIDINE 20 MG TABLET PO SCH ×2 (09:00→20:22)
[2017-07-15 11:23] VITALS: BP 128/62
[2017-07-15] MEDS: HYDROCODONE/ACETAMINOPHEN 5-325 MG TABLET PO PRN ×2 (11:31→20:52)
[2017-07-15 16:28] VITALS: BP 108/56
[2017-07-15 17:48] LABS: GLUCOMETER DEV NAME(LOC) 5N 1P; GLUCOSE,POINT OF CARE 254 MG/DL (70-110)
[2017-07-15 17:48] LABS: GLUCOMETER DEV NAME(LOC) 5N 1P; GLUCOSE,POINT OF CARE 185 MG/DL (70-110)
[2017-07-15 17:48] LABS: GLUCOMETER DEV NAME(LOC) 5N 1P; GLUCOSE,POINT OF CARE 221 MG/DL (70-110)
[2017-07-15 17:48] LABS: GLUCOMETER DEV NAME(LOC) 5N 1P; GLUCOSE,POINT OF CARE 247 MG/DL (70-110)
[2017-07-15] MEDS: ATORVASTATIN CALCIUM 40 MG TABLET PO SCH (20:22)
[2017-07-15 20:30] VITALS: BP 114/48
[2017-07-15] MEDS: INSULIN GLARGINE,HUM.REC.ANLOG 100 UNITS/ML SQ SCH (21:20)
[2017-07-16] VITALS (7 sets, daily range): BP systolic 117–145; BP diastolic 54–71
[2017-07-16 00:28] LABS: GLUCOMETER DEV NAME(LOC) 5N 1P; GLUCOSE,POINT OF CARE 243 MG/DL (70-110)
[2017-07-16] MEDS: PIPERACILLIN/TAZO 3.375 GM/D5W 50 ML IV SCH ×4 (05:14→22:39)
[2017-07-16] MEDS: INSULIN LISPRO 100 UNITS/ML SQ PRN ×4 (06:18→20:28)
[2017-07-16 06:26] LABS: CALCIUM, TOTAL 8.7 mg/dL (8.8-10.5); CREATININE 1.34 mg/dL (0.60-1.30); POTASSIUM 4.2 mmol/L (3.5-5.1); VANCOMYCIN,RANDOM 14.5 mcg/mL (25.0-50.0)
[2017-07-16] MEDS: AmLODIPine BESYLATE 10 MG TABLET PO SCH (08:45)
[2017-07-16] MEDS: BusPIRone HCL 5 MG TABLET PO SCH ×2 (08:45→20:21)
[2017-07-16] MEDS: METOPROLOL TARTRATE 25 MG TABLET PO SCH ×2 (08:47→20:20)
[2017-07-16] MEDS: HEPARIN SODIUM,PORCINE 5,000 UNITS/ML VIAL SQ SCH ×2 (08:47→20:20)
[2017-07-16] MEDS: ASPIRIN 81 MG EC TABLET PO SCH (08:47)
[2017-07-16] MEDS: VANCOMYCIN HCL 1 GM/D5% WATER 200 ML IV SCH ×2 (08:47→20:30)
[2017-07-16] MEDS: FAMOTIDINE 20 MG TABLET PO SCH ×2 (09:28→20:20)
[2017-07-16 09:48] LABS: APPEARANCE,URINE CLEAR (CLEAR); BILIRUBIN,URINE NEGATIVE (NEGATIVE); GLUCOSE, URINE (UA) NEGATIVE (NEGATIVE); KETONES,URINE NEGATIVE (NEGATIVE); LEUKOCYTE ESTERASE ,URINE NEGATIVE (NEGATIVE); NITRATE,URINE NEGATIVE (NEGATIVE); OCCULT BLOOD,URINE TRACE (NEGATIVE); PROTEIN,URINE NEGATIVE (NEGATIVE)
[2017-07-16 10:10] LABS: BACTERIA,URINE Rare /HPF (None Seen); RBC,URINE 0-2 /HPF (0-2); SQUAMOUS EPITHELIAL CELL,UR Moderate /LPF (None Seen); WBC,URINE 0-2 /HPF (0-5); YEAST,URINE Few /HPF (None Seen)
[2017-07-16] MEDS: HYDROCODONE/ACETAMINOPHEN 5-325 MG TABLET PO PRN ×2 (13:02→23:17)
[2017-07-16 14:58] LABS: GLUCOMETER DEV NAME(LOC) 5S 1M; GLUCOSE,POINT OF CARE 210 MG/DL (70-110)
[2017-07-16] MEDS ORDERED: SODIUM CHLORIDE 0.9% 250 ML IV ONE (17:13)
[2017-07-16] MEDS: ATORVASTATIN CALCIUM 40 MG TABLET PO SCH (20:20)
[2017-07-16] MEDS: INSULIN GLARGINE,HUM.REC.ANLOG 100 UNITS/ML SQ SCH (20:27)
[2017-07-17 00:42] LABS: GLUCOMETER DEV NAME(LOC) 5S 2Q; GLUCOSE,POINT OF CARE 189 MG/DL (70-110)
[2017-07-17 00:42] LABS: GLUCOMETER DEV NAME(LOC) 5S 2Q; GLUCOSE,POINT OF CARE 240 MG/DL (70-110)
[2017-07-17] MEDS: PIPERACILLIN/TAZO 3.375 GM/D5W 50 ML IV SCH ×3 (04:35→17:23)
[2017-07-17] MEDS: INSULIN LISPRO 100 UNITS/ML SQ PRN ×4 (06:17→20:39)
[2017-07-17 06:54] VITALS: BP 138/67
[2017-07-17 07:07] VITALS: BP 122/58
[2017-07-17 07:14] LABS: CALCIUM, TOTAL 8.9 mg/dL (8.8-10.5); CREATININE 1.32 mg/dL (0.60-1.30); POTASSIUM 4.8 mmol/L (3.5-5.1)
[2017-07-17] MEDS: BusPIRone HCL 5 MG TABLET PO SCH ×2 (09:04→20:32)
[2017-07-17] MEDS: ASPIRIN 81 MG EC TABLET PO SCH (09:04)
[2017-07-17] MEDS: HEPARIN SODIUM,PORCINE 5,000 UNITS/ML VIAL SQ SCH ×2 (09:05→20:32)
[2017-07-17] MEDS: FAMOTIDINE 20 MG TABLET PO SCH ×2 (09:05→21:02)
[2017-07-17] MEDS: AmLODIPine BESYLATE 10 MG TABLET PO SCH (09:05)
[2017-07-17] MEDS: VANCOMYCIN HCL 1 GM/D5% WATER 200 ML IV SCH ×2 (09:05→20:32)
[2017-07-17] MEDS: METOPROLOL TARTRATE 25 MG TABLET PO SCH ×2 (09:07→20:41)
[2017-07-17 11:44] VITALS: BP 120/64
[2017-07-17 14:19] LABS: GLUCOMETER DEV NAME(LOC) 5S 2Q; GLUCOSE,POINT OF CARE 212 MG/DL (70-110)
[2017-07-17 15:18] VITALS: BP 114/68
[2017-07-17] MEDS: HYDROCODONE/ACETAMINOPHEN 5-325 MG TABLET PO PRN (16:15)
[2017-07-17 18:47] LABS: GLUCOMETER DEV NAME(LOC) 5S 2Q; GLUCOSE,POINT OF CARE 256 MG/DL (70-110)
[2017-07-17 19:26] VITALS: BP 109/62
[2017-07-17] MEDS: ATORVASTATIN CALCIUM 40 MG TABLET PO SCH (20:32)
[2017-07-17] MEDS: INSULIN GLARGINE,HUM.REC.ANLOG 100 UNITS/ML SQ SCH (20:38)
[2017-07-18] VITALS (7 sets, daily range): BP systolic 118–158; BP diastolic 55–82
[2017-07-18 00:57] LABS: GLUCOMETER DEV NAME(LOC) 5S 2Q; GLUCOSE,POINT OF CARE 240 MG/DL (70-110)
[2017-07-18] MEDS: PIPERACILLIN/TAZO 3.375 GM/D5W 50 ML IV SCH ×5 (01:06→23:25)
[2017-07-18] MEDS: INSULIN LISPRO 100 UNITS/ML SQ PRN ×4 (06:05→20:57)
[2017-07-18 06:58] LABS: GLUCOMETER DEV NAME(LOC) 5S 1M; GLUCOSE,POINT OF CARE 233 MG/DL (70-110)
[2017-07-18 06:58] LABS: GLUCOMETER DEV NAME(LOC) 5S 1M; GLUCOSE,POINT OF CARE 223 MG/DL (70-110)
[2017-07-18 06:58] LABS: GLUCOMETER DEV NAME(LOC) 5S 2Q; GLUCOSE,POINT OF CARE 266 MG/DL (70-110)
[2017-07-18 07:29] LABS: CALCIUM, TOTAL 9.3 mg/dL (8.8-10.5); CREATININE 1.38 mg/dL (0.60-1.30); POTASSIUM 4.5 mmol/L (3.5-5.1)
[2017-07-18] MEDS: VANCOMYCIN HCL 750 MG in DEXTROSE 5%-WATER 250 ML IV SCH ×2 (08:14→20:54)
[2017-07-18] MEDS: BusPIRone HCL 5 MG TABLET PO SCH ×2 (08:14→20:55)
[2017-07-18] MEDS: FAMOTIDINE 20 MG TABLET PO SCH ×2 (08:15→20:55)
[2017-07-18] MEDS: ASPIRIN 81 MG EC TABLET PO SCH (08:17)
[2017-07-18] MEDS: METOPROLOL TARTRATE 25 MG TABLET PO SCH ×2 (08:18→20:55)
[2017-07-18] MEDS: AmLODIPine BESYLATE 10 MG TABLET PO SCH (08:18)
[2017-07-18] MEDS: HYDROCODONE/ACETAMINOPHEN 5-325 MG TABLET PO PRN ×2 (08:27→14:08)
[2017-07-18] MEDS: HEPARIN SODIUM,PORCINE 5,000 UNITS/ML VIAL SQ SCH ×2 (09:18→20:55)
[2017-07-18] MEDS ORDERED: SODIUM CHLORIDE 0.9% 250 ML IV ONE (16:51)
[2017-07-18] MEDS: ATORVASTATIN CALCIUM 40 MG TABLET PO SCH (20:55)
[2017-07-18] MEDS: INSULIN GLARGINE,HUM.REC.ANLOG 100 UNITS/ML SQ SCH (20:57)
[2017-07-19] MEDS: HYDROCODONE/ACETAMINOPHEN 5-325 MG TABLET PO PRN ×2 (02:41→15:10)
[2017-07-19 03:22] LABS: GLUCOMETER DEV NAME(LOC) 5S 1M; GLUCOSE,POINT OF CARE 260 MG/DL (70-110)
[2017-07-19 03:22] LABS: GLUCOMETER DEV NAME(LOC) 5S 2Q; GLUCOSE,POINT OF CARE 223 MG/DL (70-110)
[2017-07-19 03:23] LABS: GLUCOMETER DEV NAME(LOC) 5S 1M; GLUCOSE,POINT OF CARE 275 MG/DL (70-110)
[2017-07-19 05:23] VITALS: BP 126/63
[2017-07-19] MEDS: INSULIN LISPRO 100 UNITS/ML SQ PRN ×4 (05:48→19:52)
[2017-07-19] MEDS: PIPERACILLIN/TAZO 3.375 GM/D5W 50 ML IV SCH ×3 (05:48→17:25)
[2017-07-19 06:56] LABS: CALCIUM, TOTAL 9.2 mg/dL (8.8-10.5); CREATININE 1.42 mg/dL (0.60-1.30); POTASSIUM 4.8 mmol/L (3.5-5.1)
[2017-07-19 07:32] VITALS: BP 114/54
[2017-07-19] MEDS: VANCOMYCIN HCL 750 MG in DEXTROSE 5%-WATER 250 ML IV SCH ×2 (08:11→19:48)
[2017-07-19] MEDS: AmLODIPine BESYLATE 10 MG TABLET PO SCH (08:12)
[2017-07-19] MEDS: FAMOTIDINE 20 MG TABLET PO SCH ×2 (08:12→19:49)
[2017-07-19] MEDS: BusPIRone HCL 5 MG TABLET PO SCH ×2 (08:12→19:48)
[2017-07-19] MEDS: METOPROLOL TARTRATE 25 MG TABLET PO SCH ×2 (08:13→19:49)
[2017-07-19] MEDS: ASPIRIN 81 MG EC TABLET PO SCH (08:13)
[2017-07-19] MEDS: HEPARIN SODIUM,PORCINE 5,000 UNITS/ML VIAL SQ SCH (08:14)
[2017-07-19 08:22] VITALS: BP 126/71
[2017-07-19 09:08] LABS: GLUCOMETER DEV NAME(LOC) 5S 1M; GLUCOSE,POINT OF CARE 196 MG/DL (70-110)
[2017-07-19 10:14] LABS: BASOPHILS % (AUTO) 1.3 % (0.0-2.0); EOSINOPHILS % (AUTO) 3.2 % (1.0-6.0); HEMATOCRIT 32.7 % (36-46); HEMOGLOBIN 11.1 g/dL (12.0-16.0); LYMPHOCYTES # (AUTO) 2.5 K/uL (1.0-4.8); LYMPHOCYTES % (AUTO) 25.9 % (22.0-44.0); MEAN CORPUSCULAR HEMOGLOBIN 27.7 pg (26.0-34.0); MEAN CORPUSCULAR HGB CONC 33.8 G/dL (31.0-37.0); MEAN CORPUSCULAR VOLUME 82 fL (80-100); MONOCYTES # (AUTO) 0.8 K/uL (0.1-1.0); MONOCYTES % (AUTO) 7.8 % (2.0-9.0); NEUTROPHILS % (AUTO) 61.8 % (40.0-70.0); PLATELET COUNT (AUTO) 437 K/uL (150-450); RED CELL DISTRIBUTION WIDTH 18.4 % (11.5-14.5)
[2017-07-19 12:08] LABS: GLUCOMETER DEV NAME(LOC) 5S 1M; GLUCOSE,POINT OF CARE 291 MG/DL (70-110)
[2017-07-19 14:45] VITALS: BP 126/64
[2017-07-19] MEDS: INSULIN LISPRO 100 UNITS/ML SQ SCH (17:56)
[2017-07-19 19:48] VITALS: BP 125/59
[2017-07-19] MEDS: ATORVASTATIN CALCIUM 40 MG TABLET PO SCH (19:48)
[2017-07-19] MEDS: INSULIN GLARGINE,HUM.REC.ANLOG 100 UNITS/ML SQ SCH (19:51)
[2017-07-19 23:40] VITALS: BP 122/59
[2017-07-20] MEDS: PIPERACILLIN/TAZO 3.375 GM/D5W 50 ML IV SCH ×5 (00:07→22:10)
[2017-07-20 04:43] VITALS: BP 141/77
[2017-07-20 06:20] LABS: BASOPHILS % (AUTO) 0.9 % (0.0-2.0); EOSINOPHILS % (AUTO) 2.6 % (1.0-6.0); HEMATOCRIT 35.2 % (36-46); HEMOGLOBIN 11.7 g/dL (12.0-16.0); LYMPHOCYTES # (AUTO) 3.4 K/uL (1.0-4.8); LYMPHOCYTES % (AUTO) 28.6 % (22.0-44.0); MEAN CORPUSCULAR HEMOGLOBIN 27.2 pg (26.0-34.0); MEAN CORPUSCULAR HGB CONC 33.4 G/dL (31.0-37.0); MEAN CORPUSCULAR VOLUME 82 fL (80-100); MONOCYTES # (AUTO) 0.9 K/uL (0.1-1.0); MONOCYTES % (AUTO) 7.9 % (2.0-9.0); NEUTROPHILS # (AUTO) 7.1 K/uL (1.8-7.7); PLATELET COUNT (AUTO) 432 K/uL (150-450); RED BLOOD CELL COUNT(AUTO) 4.31 MIL/uL (4.00-5.20); RED CELL DISTRIBUTION WIDTH 18.4 % (11.5-14.5)
[2017-07-20] MEDS ORDERED: SODIUM CHLORIDE 0.9% 1,000 ML IV ONE (06:36)
[2017-07-20] MEDS ORDERED: LIDOCAINE HCL/PF 1% 30 ML VIAL ONE (06:51)
[2017-07-20] MEDS ORDERED: BUPIVACAINE HCL/PF 0.5% 30 ML VIAL ONE (06:51)
[2017-07-20 06:56] LABS: CALCIUM, TOTAL 9.8 mg/dL (8.8-10.5); CREATININE 1.41 mg/dL (0.60-1.30); POTASSIUM 4.9 mmol/L (3.5-5.1)
[2017-07-20 06:57] LABS: GLUCOMETER DEV NAME(LOC) 5S 2Q; GLUCOSE,POINT OF CARE 259 MG/DL (70-110)
[2017-07-20 06:58] LABS: GLUCOMETER DEV NAME(LOC) 5S 2Q; GLUCOSE,POINT OF CARE 298 MG/DL (70-110)
[2017-07-20 07:09] LABS: VANCOMYCIN,RANDOM 22.2 mcg/mL (25.0-50.0)
[2017-07-20] MEDS ORDERED: HYDROmorphone 2 MG/ML SYRINGE IVP PRN (07:15)
[2017-07-20] MEDS ORDERED: MEPERIDINE HCL/PF 25 MG/0.5 ML AMP IVP PRN (07:15)
[2017-07-20] MEDS ORDERED: FentaNYL CITRATE-PF 100 MCG/2 ML VIAL IVP PRN (07:15)
[2017-07-20] MEDS: OXYGEN THERAPY IH SCH ×2 (08:00→20:00)
[2017-07-20] MEDS ORDERED: BACITRACIN 50,000 UNITS/VIAL ONE (08:14)
[2017-07-20] MEDS ORDERED: SODIUM CHLORIDE 0.9% 10 ML ONE (08:14)
[2017-07-20] MEDS: METOPROLOL TARTRATE 25 MG TABLET PO SCH ×2 (09:08→20:11)
[2017-07-20] MEDS: ASPIRIN 81 MG EC TABLET PO SCH (09:08)
[2017-07-20] MEDS: HEPARIN SODIUM,PORCINE 5,000 UNITS/ML VIAL SQ SCH ×2 (09:08→20:12)
[2017-07-20] MEDS: HYDROCODONE/ACETAMINOPHEN 5-325 MG TABLET PO PRN ×2 (09:08→20:11)
[2017-07-20] MEDS: BusPIRone HCL 5 MG TABLET PO SCH ×2 (09:08→20:19)
[2017-07-20] MEDS: FAMOTIDINE 20 MG TABLET PO SCH ×2 (09:08→20:10)
[2017-07-20] MEDS: AmLODIPine BESYLATE 10 MG TABLET PO SCH (09:09)
[2017-07-20] MEDS: INSULIN LISPRO 100 UNITS/ML SQ SCH ×3 (09:11→17:51)
[2017-07-20] MEDS: INSULIN LISPRO 100 UNITS/ML SQ PRN ×3 (09:12→17:51)
[2017-07-20 09:30] VITALS: BP 121/60
[2017-07-20 11:51] VITALS: BP 115/61
[2017-07-20 16:28] VITALS: BP 127/60
[2017-07-20 19:48] LABS: GLUCOMETER DEV NAME(LOC) 6N 2D; GLUCOSE,POINT OF CARE 165 MG/DL (70-110)
[2017-07-20 20:00] VITALS: BP 128/64
[2017-07-20] MEDS: ATORVASTATIN CALCIUM 40 MG TABLET PO SCH (20:10)
[2017-07-20] MEDS: INSULIN GLARGINE,HUM.REC.ANLOG 100 UNITS/ML SQ SCH (20:12)
[2017-07-20 21:03] LABS: GLUCOMETER DEV NAME(LOC) 6N 1E; GLUCOSE,POINT OF CARE 248 MG/DL (70-110)
[2017-07-21] VITALS (7 sets, daily range): BP systolic 100–138; BP diastolic 49–79
[2017-07-21] MEDS: PIPERACILLIN/TAZO 3.375 GM/D5W 50 ML IV SCH ×4 (04:40→22:38)
[2017-07-21] MEDS ORDERED: FentaNYL CITRATE-PF 100 MCG/2 ML VIAL IVP ONE (05:35)
[2017-07-21] MEDS ORDERED: PROPOFOL 1% 20 ML VIAL IVP ONE (05:35)
[2017-07-21] MEDS ORDERED: MIDAZOLAM HCL 2 MG/2 ML VIAL IVP ONE (05:35)
[2017-07-21] MEDS: INSULIN LISPRO 100 UNITS/ML SQ SCH ×3 (05:59→17:42)
[2017-07-21] MEDS: INSULIN LISPRO 100 UNITS/ML SQ PRN ×3 (05:59→17:45)
[2017-07-21 06:14] LABS: GLUCOMETER DEV NAME(LOC) 6N 1E; GLUCOSE,POINT OF CARE 220 MG/DL (70-110)
[2017-07-21] MEDS: OXYGEN THERAPY IH SCH ×2 (08:00→20:00)
[2017-07-21] MEDS: VANCOMYCIN HCL 1.5 GM in DEXTROSE 5%-WATER 250 ML IV SCH (08:32)
[2017-07-21] MEDS: AmLODIPine BESYLATE 10 MG TABLET PO SCH (08:33)
[2017-07-21] MEDS: FAMOTIDINE 20 MG TABLET PO SCH ×2 (08:33→20:44)
[2017-07-21] MEDS: ASPIRIN 81 MG EC TABLET PO SCH (08:33)
[2017-07-21] MEDS: METOPROLOL TARTRATE 25 MG TABLET PO SCH ×2 (08:33→20:44)
[2017-07-21] MEDS: BusPIRone HCL 5 MG TABLET PO SCH ×2 (08:34→21:16)
[2017-07-21] MEDS: HEPARIN SODIUM,PORCINE 5,000 UNITS/ML VIAL SQ SCH ×2 (08:34→20:43)
[2017-07-21] MEDS: HYDROCODONE/ACETAMINOPHEN 5-325 MG TABLET PO PRN ×2 (08:48→20:46)
[2017-07-21 09:33] LABS: CALCIUM, TOTAL 9.3 mg/dL (8.8-10.5); CREATININE 1.38 mg/dL (0.60-1.30); POTASSIUM 4.2 mmol/L (3.5-5.1)
[2017-07-21 13:23] LABS: GLUCOMETER DEV NAME(LOC) 5S 2Q; GLUCOSE,POINT OF CARE 222 MG/DL (70-110)
[2017-07-21 14:24] LABS: GLUCOMETER DEV NAME(LOC) 6N 2D; GLUCOSE,POINT OF CARE 269 MG/DL (70-110)
[2017-07-21 19:47] LABS: GLUCOMETER DEV NAME(LOC) 6N 2D; GLUCOSE,POINT OF CARE 147 MG/DL (70-110)
[2017-07-21] MEDS: INSULIN GLARGINE,HUM.REC.ANLOG 100 UNITS/ML SQ SCH (20:43)
[2017-07-21] MEDS: ATORVASTATIN CALCIUM 40 MG TABLET PO SCH (20:44)
[2017-07-21 21:18] LABS: GLUCOMETER DEV NAME(LOC) 6N 1E; GLUCOSE,POINT OF CARE 117 MG/DL (70-110)
[2017-07-22] MEDS: HYDROCODONE/ACETAMINOPHEN 5-325 MG TABLET PO PRN ×3 (02:21→20:35)
[2017-07-22 04:29] VITALS: BP 147/73
[2017-07-22] MEDS: PIPERACILLIN/TAZO 3.375 GM/D5W 50 ML IV SCH ×4 (04:45→22:37)
[2017-07-22 05:02] LABS: GLUCOMETER DEV NAME(LOC) 6N 1E; GLUCOSE,POINT OF CARE 205 MG/DL (70-110)
[2017-07-22] MEDS: INSULIN LISPRO 100 UNITS/ML SQ SCH ×3 (05:53→17:36)
[2017-07-22] MEDS: INSULIN LISPRO 100 UNITS/ML SQ PRN ×3 (05:53→17:36)
[2017-07-22 06:36] LABS: CREATININE 1.44 mg/dL (0.60-1.30); POTASSIUM 4.3 mmol/L (3.5-5.1)
[2017-07-22 07:40] VITALS: BP 136/67
[2017-07-22] MEDS: OXYGEN THERAPY IH SCH (08:00)
[2017-07-22] MEDS: HEPARIN SODIUM,PORCINE 5,000 UNITS/ML VIAL SQ SCH ×2 (08:32→20:33)
[2017-07-22] MEDS: VANCOMYCIN HCL 1.5 GM in DEXTROSE 5%-WATER 250 ML IV SCH (08:32)
[2017-07-22] MEDS: AmLODIPine BESYLATE 10 MG TABLET PO SCH (08:33)
[2017-07-22] MEDS: ASPIRIN 81 MG EC TABLET PO SCH (08:33)
[2017-07-22] MEDS: BusPIRone HCL 5 MG TABLET PO SCH ×2 (08:33→20:32)
[2017-07-22] MEDS: METOPROLOL TARTRATE 25 MG TABLET PO SCH ×2 (08:33→20:33)
[2017-07-22 09:47] LABS: PROTHROMBIN TIME 10.1 SEC (9.4-11.6)
[2017-07-22] MEDS ORDERED: HEPARIN SODIUM 1000 UNITS/NS 500 ML ONE (10:50)
[2017-07-22 11:28] VITALS: BP 155/77
[2017-07-22] MEDS: FAMOTIDINE 20 MG TABLET PO SCH ×2 (12:35→20:32)
[2017-07-22 15:13] LABS: GLUCOMETER DEV NAME(LOC) 6N 2D; GLUCOSE,POINT OF CARE 218 MG/DL (70-110)
[2017-07-22 16:15] VITALS: BP 134/64
[2017-07-22 18:58] LABS: GLUCOMETER DEV NAME(LOC) 6N 1E; GLUCOSE,POINT OF CARE 274 MG/DL (70-110)
[2017-07-22 19:37] VITALS: BP 128/59
[2017-07-22] MEDS: ATORVASTATIN CALCIUM 40 MG TABLET PO SCH (20:32)
[2017-07-22 20:39] LABS: GLUCOMETER DEV NAME(LOC) 5S 1M; GLUCOSE,POINT OF CARE 181 MG/DL (70-110)
[2017-07-22] MEDS: INSULIN GLARGINE,HUM.REC.ANLOG 100 UNITS/ML SQ SCH (20:43)
[2017-07-22 22:08] LABS: GLUCOMETER DEV NAME(LOC) 6N 2D; GLUCOSE,POINT OF CARE 182 MG/DL (70-110)
[2017-07-22 23:39] VITALS: BP 104/54
[2017-07-23] MEDS: PIPERACILLIN/TAZO 3.375 GM/D5W 50 ML IV SCH ×3 (04:20→16:14)
[2017-07-23 05:23] VITALS: BP 127/63
[2017-07-23 06:49] LABS: GLUCOMETER DEV NAME(LOC) 6N 1E; GLUCOSE,POINT OF CARE 176 MG/DL (70-110)
[2017-07-23] MEDS: INSULIN LISPRO 100 UNITS/ML SQ SCH ×2 (06:54→12:03)
[2017-07-23] MEDS: OXYGEN THERAPY IH SCH (08:00)
[2017-07-23 08:19] LABS: BASOPHILS % (AUTO) 0.7 % (0.0-2.0); EOSINOPHILS % (AUTO) 1.9 % (1.0-6.0); HEMATOCRIT 35.5 % (36-46); HEMOGLOBIN 11.6 g/dL (12.0-16.0); LYMPHOCYTES # (AUTO) 2.4 K/uL (1.0-4.8); LYMPHOCYTES % (AUTO) 25.3 % (22.0-44.0); MEAN CORPUSCULAR HEMOGLOBIN 27.7 pg (26.0-34.0); MEAN CORPUSCULAR HGB CONC 32.7 G/dL (31.0-37.0); MEAN CORPUSCULAR VOLUME 85 fL (80-100); MONOCYTES # (AUTO) 0.7 K/uL (0.1-1.0); MONOCYTES % (AUTO) 7.3 % (2.0-9.0); NEUTROPHILS # (AUTO) 6.2 K/uL (1.8-7.7); NEUTROPHILS % (AUTO) 64.8 % (40.0-70.0); PLATELET COUNT (AUTO) 419 K/uL (150-450); RED BLOOD CELL COUNT(AUTO) 4.19 MIL/uL (4.00-5.20)
[2017-07-23 08:41] VITALS: BP 115/69
[2017-07-23 08:45] LABS: ALBUMIN 2.7 g/dL (3.4-5.0); BILIRUBIN,TOTAL 0.3 mg/dL (0.1-1.0); CALCIUM, TOTAL 9.1 mg/dL (8.8-10.5); CREATININE 1.29 mg/dL (0.60-1.30); POTASSIUM 4.4 mmol/L (3.5-5.1); TOTAL PROTEIN, SERUM 8.2 g/dL (6.4-8.2); VANCOMYCIN,RANDOM 14.8 mcg/mL (25.0-50.0)
[2017-07-23] MEDS: VANCOMYCIN HCL 1.5 GM in DEXTROSE 5%-WATER 250 ML IV SCH (08:56)
[2017-07-23] MEDS: METOPROLOL TARTRATE 25 MG TABLET PO SCH (08:57)
[2017-07-23] MEDS: HEPARIN SODIUM,PORCINE 5,000 UNITS/ML VIAL SQ SCH (08:57)
[2017-07-23] MEDS: FAMOTIDINE 20 MG TABLET PO SCH (08:57)
[2017-07-23] MEDS: BusPIRone HCL 5 MG TABLET PO SCH (08:57)
[2017-07-23] MEDS: ASPIRIN 81 MG EC TABLET PO SCH (08:57)
[2017-07-23] MEDS: AmLODIPine BESYLATE 10 MG TABLET PO SCH (08:57)
[2017-07-23] MEDS: INSULIN LISPRO 100 UNITS/ML SQ PRN (12:03)
[2017-07-23 12:04] VITALS: BP 146/67
[2017-07-23 12:30] LABS: GLUCOMETER DEV NAME(LOC) 6N 2D; GLUCOSE,POINT OF CARE 192 MG/DL (70-110)
[2017-07-23 16:18] VITALS: BP 135/65
== END 2017-07-23 17:55 | DRG 570 ==
LOC: EMS 13:53 → UNDOADMIN 19:30 → 5S 19:30 → 6N 19:30
PROVIDERS: ADMIT Internal Medicine; ATTEND Internal Medicine
PROC: 0QBR0ZX Excision of Left Toe Phalanx, Open Approach, Diagnostic (ICD-10-PCS; 2017-07-20)
PROC: 0JBR0ZZ Excision of Left Foot Subcutaneous Tissue and Fascia, Open Approach (ICD-10-PCS; principal; 2017-07-20 07:30)
PROC: 02HV33Z Insertion of Infusion Device into Superior Vena Cava, Percutaneous Approach (ICD-10-PCS; 2017-07-22)
PROC: B548ZZA Ultrasonography of Superior Vena Cava, Guidance (ICD-10-PCS; 2017-07-22)
DX: L03.032 Cellulitis of left toe (principal); N17.0 Acute kidney failure with tubular necrosis; E44.0 Moderate protein-calorie malnutrition; E11.40 Type 2 diabetes mellitus with diabetic neuropathy, unspecified; E11.51 Type 2 diabetes mellitus with diabetic peripheral angiopathy without gangrene; F11.20 Opioid dependence, uncomplicated; L03.116 Cellulitis of left lower limb; M86.672 Other chronic osteomyelitis, left ankle and foot; E11.69 Type 2 diabetes mellitus with other specified complication; E11.621 Type 2 diabetes mellitus with foot ulcer; I50.9 Heart failure, unspecified; I11.0 Hypertensive heart disease with heart failure; D63.8 Anemia in other chronic diseases classified elsewhere; E78.00 Pure hypercholesterolemia, unspecified; E78.5 Hyperlipidemia, unspecified; F41.1 Generalized anxiety disorder; I25.10 Atherosclerotic heart disease of native coronary artery without angina pectoris; L97.529 Non-pressure chronic ulcer of other part of left foot with unspecified severity; I25.2 Old myocardial infarction; Z95.1 Presence of aortocoronary bypass graft; Z90.710 Acquired absence of both cervix and uterus; Z90.49 Acquired absence of other specified parts of digestive tract; Z79.4 Long term (current) use of insulin; Z79.899 Other long term (current) drug therapy; Z79.82 Long term (current) use of aspirin; Z82.49 Family history of ischemic heart disease and other diseases of the circulatory system; Z83.3 Family history of diabetes mellitus; Z68.39 Body mass index [BMI] 39.0-39.9, adult
CPT/HCPCS: 36569; 73718; 82607; 82728; 82746; 83540; 83550; 83605; 83735; 84100; 84145; 85651; 86140; 87040; 87070; 87205; 88307; 88311; 93005; 93306; 93925; 93971; 97116; 97161; 97165; 97530; 99285; J1644; J1815; J2250; J2543; J2704; J3010; J3370; J3490; J7030; J7050; J7060

== ENCOUNTER 2017-09-10 11:12 | Inpatient (IN) | payer OTHER ==
[~2017-09-10] VITALS: Ht 175.3 cm; Wt 125.1 kg
[2017-09-10 11:54] LABS: GLUCOSE,POINT OF CARE 174 MG/DL (70-110)
[2017-09-10] MEDS ORDERED: SODIUM CHLORIDE 0.9% 1,000 ML IV ONE ×3 (12:00→15:30)
[2017-09-10 13:34] LABS: BASOPHILS % (AUTO) 0.3 % (0.0-2.0); EOSINOPHILS % (AUTO) 0 % (1.0-6.0); HEMATOCRIT 34.9 % (36-46); HEMOGLOBIN 11.6 g/dL (12.0-16.0); LYMPHOCYTES % (AUTO) 7.4 % (22.0-44.0); MEAN CORPUSCULAR HEMOGLOBIN 28.8 pg (26.0-34.0); MEAN CORPUSCULAR HGB CONC 33.3 G/dL (31.0-37.0); MEAN CORPUSCULAR VOLUME 86 fL (80-100); MONOCYTES # (AUTO) 1.2 K/uL (0.1-1.0); MONOCYTES % (AUTO) 4.4 % (2.0-9.0); NEUTROPHILS # (AUTO) 23.2 K/uL (1.8-7.7); PLATELET COUNT (AUTO) 275 K/uL (150-450); RED BLOOD CELL COUNT(AUTO) 4.04 MIL/uL (4.00-5.20); RED CELL DISTRIBUTION WIDTH 17.6 % (11.5-14.5)
[2017-09-10 13:36] LABS: NEUTROPHILS % (AUTO) 87.9 % (40.0-70.0)
[2017-09-10] MEDS ORDERED: CefTRIAXone SODIUM 1 GM in DEXTROSE 5%-WATER 10 ML IV ONE (13:45)
[2017-09-10] MEDS ORDERED: VANCOMYCIN HCL 1.25 GM in DEXTROSE 5%-WATER 250 ML IV ONE (13:45)
[2017-09-10 13:53] LABS: INR 1.1 (0.9-1.1); PROTHROMBIN TIME 11.7 SEC (9.4-11.6)
[2017-09-10 14:01] LABS: B-TYPE NATRIURETIC PEPTIDE 204 pg/mL (0-100)
[2017-09-10 14:05] LABS: ANION GAP 11 mmol/L (8-16); CALCIUM, TOTAL 9.7 mg/dL (8.8-10.5); CARBON DIOXIDE 26 mmol/L (22-29); CHLORIDE 99 mmol/L (98-107); CREATININE 1.59 mg/dL (0.60-1.30); GLOMERULAR FILTR. RATE CALC 39 mL/min (>60); POTASSIUM 3.8 mmol/L (3.5-5.1); SODIUM SERUM 136 mmol/L (136-145); UREA NITROGEN, BLOOD 35 mg/dL (7-18)
[2017-09-10 14:24] LABS: GLUCOSE,RANDOM 169 mg/dL (70-110)
[2017-09-10 14:27] LABS: ALANINE AMINOTRANSFERASE 22 U/L (12-78); ALBUMIN 2.9 g/dL (3.4-5.0); ALKALINE PHOSPHATASE 132 U/L (46-116); ASPARTATE AMINOTRANSFERASE 28 U/L (15-37); BILIRUBIN,TOTAL 1.5 mg/dL (0.1-1.0); CREATINE KINASE MB 2.3 ng/mL (0-5); CREATINE KINASE, TOTAL 498 U/L (26-192)
[2017-09-10] MEDS ORDERED: GABAPENTIN 100 MG CAPSULE PO ONE (14:30)
[2017-09-10] MEDS ORDERED: 0.9% SODIUM CHLORIDE 10 ML SYRINGE IVP PRN (14:30)
[2017-09-10] MEDS ORDERED: ACETAMINOPHEN 325 MG TABLET PO PRN ×2 (14:30→15:15)
[2017-09-10] MEDS ORDERED: ONDANSETRON HCL 4 MG/2 ML VIAL IVP PRN (14:30)
[2017-09-10] MEDS ORDERED: MORPHINE SULFATE 2 MG/ML SYRINGE IVP PRN (15:15)
[2017-09-10] MEDS ORDERED: MAGNESIUM HYDROXIDE SUSPENSION 30 ML UDCUP PO PRN (15:15)
[2017-09-10] MEDS ORDERED: DEXTROSE 50%-WATER 25 GM/50 ML SYRINGE IVP PRN (15:30)
[2017-09-10] MEDS: ASPIRIN 81 MG CHEWABLE TABLET PO SCH (16:02)
[2017-09-10] MEDS: HEPARIN SODIUM,PORCINE 5,000 UNITS/ML VIAL SQ SCH (16:02)
[2017-09-10 16:11] LABS: APPEARANCE,URINE CLEAR (CLEAR); BILIRUBIN,URINE NEGATIVE (NEGATIVE); GLUCOSE, URINE (UA) 100 mg/dL (NEGATIVE); KETONES,URINE NEGATIVE (NEGATIVE); LEUKOCYTE ESTERASE ,URINE MODERATE (NEGATIVE); NITRATE,URINE NEGATIVE (NEGATIVE); OCCULT BLOOD,URINE SMALL (NEGATIVE); PH,URINE 5.5 (5.0-8.0); PROTEIN,URINE NEGATIVE (NEGATIVE); UROBILINOGEN,URINE 0.2 mg/dL (<=1.0)
[2017-09-10 16:17] LABS: WBC,URINE 26-50 /HPF (0-5)
[2017-09-10 16:18] LABS: BACTERIA,URINE Few /HPF (None Seen); SQUAMOUS EPITHELIAL CELL,UR Rare /LPF (None Seen)
[2017-09-10] MEDS: DOCUSATE SODIUM 100 MG CAPSULE PO SCH (20:59)
[2017-09-10] MEDS: ATORVASTATIN CALCIUM 20 MG TABLET PO SCH (20:59)
[2017-09-10 21:01] VITALS: BP 117/50
[2017-09-10] MEDS: INSULIN LISPRO 100 UNITS/ML SQ PRN (21:01)
[2017-09-10] MEDS ORDERED: VANCOMYCIN HCL 1 GM/D5% WATER 200 ML IV ONE (22:00)
[2017-09-10] MEDS ORDERED: SODIUM CHLORIDE 0.9% 250 ML IV ONE (23:49)
[2017-09-11] MEDS: HEPARIN SODIUM,PORCINE 5,000 UNITS/ML VIAL SQ SCH ×4 (00:07→23:33)
[2017-09-11 00:19] VITALS: BP 125/64
[2017-09-11 01:23] LABS: GLUCOMETER DEV NAME(LOC) 6N 1E; GLUCOSE,POINT OF CARE 211 MG/DL (70-110)
[2017-09-11 04:30] VITALS: BP 111/58
[2017-09-11 06:19] LABS: ALBUMIN 2.5 g/dL (3.4-5.0); BILIRUBIN,TOTAL 1.1 mg/dL (0.1-1.0); CALCIUM, TOTAL 8.9 mg/dL (8.8-10.5); CREATININE 1.42 mg/dL (0.60-1.30); POTASSIUM 3.6 mmol/L (3.5-5.1); TOTAL PROTEIN, SERUM 7.3 g/dL (6.4-8.2)
[2017-09-11 06:25] LABS: BASOPHILS % (AUTO) 0.2 % (0.0-2.0); EOSINOPHILS % (AUTO) 0 % (1.0-6.0); HEMATOCRIT 32.3 % (36-46); HEMOGLOBIN 10.8 g/dL (12.0-16.0); LYMPHOCYTES # (AUTO) 2.1 K/uL (1.0-4.8); MEAN CORPUSCULAR HGB CONC 33.6 G/dL (31.0-37.0); MEAN CORPUSCULAR VOLUME 86 fL (80-100); MONOCYTES # (AUTO) 1.3 K/uL (0.1-1.0); NEUTROPHILS # (AUTO) 15.4 K/uL (1.8-7.7); NEUTROPHILS % (AUTO) 81.8 % (40.0-70.0); PLATELET COUNT (AUTO) 234 K/uL (150-450); RED BLOOD CELL COUNT(AUTO) 3.74 MIL/uL (4.00-5.20); RED CELL DISTRIBUTION WIDTH 17.1 % (11.5-14.5)
[2017-09-11] MEDS: INSULIN LISPRO 100 UNITS/ML SQ PRN ×4 (06:30→20:13)
[2017-09-11] MEDS: OxyCODONE HCL/ACETAMINOPHEN 5-325 MG TABLET PO PRN ×2 (06:31→16:53)
[2017-09-11] MEDS ORDERED: VANCOMYCIN HCL 750 MG in DEXTROSE 5%-WATER 250 ML IV SCH (07:00)
[2017-09-11 07:23] LABS: GLUCOMETER DEV NAME(LOC) 6N 2D; GLUCOSE,POINT OF CARE 162 MG/DL (70-110)
[2017-09-11 07:40] VITALS: BP 99/50
[2017-09-11] MEDS: DOCUSATE SODIUM 100 MG CAPSULE PO SCH ×2 (08:11→20:07)
[2017-09-11] MEDS: ASPIRIN 81 MG CHEWABLE TABLET PO SCH (08:11)
[2017-09-11] MEDS: PANTOPRAZOLE SODIUM 40 MG DR TABLET PO SCH (08:11)
[2017-09-11] MEDS ORDERED: IOVERSOL 350 MG/ML 150 ML VIAL ONE (11:35)
[2017-09-11] MEDS ORDERED: SODIUM CHLORIDE 0.9% 100 ML ONE (11:35)
[2017-09-11 12:32] VITALS: BP 94/56
[2017-09-11 12:53] LABS: GLUCOMETER DEV NAME(LOC) 6N 2D; GLUCOSE,POINT OF CARE 202 MG/DL (70-110)
[2017-09-11 15:41] VITALS: BP 122/66
[2017-09-11] MEDS: VANCOMYCIN HCL 1 GM/D5% WATER 200 ML IV SCH (18:38)
[2017-09-11 19:53] LABS: GLUCOMETER DEV NAME(LOC) 6N 2D; GLUCOSE,POINT OF CARE 189 MG/DL (70-110)
[2017-09-11] MEDS: ATORVASTATIN CALCIUM 20 MG TABLET PO SCH (20:07)
[2017-09-11 20:21] VITALS: BP 111/55
[2017-09-12 00:24] VITALS: BP 119/55
[2017-09-12] MEDS: OxyCODONE HCL/ACETAMINOPHEN 5-325 MG TABLET PO PRN ×4 (03:41→22:09)
[2017-09-12 04:00] VITALS: BP 103/58
[2017-09-12] MEDS: VANCOMYCIN HCL 1 GM/D5% WATER 200 ML IV SCH (06:28)
[2017-09-12] MEDS: INSULIN LISPRO 100 UNITS/ML SQ PRN ×4 (06:32→21:00)
[2017-09-12 06:43] LABS: GLUCOMETER DEV NAME(LOC) 6N 1E; GLUCOSE,POINT OF CARE 252 MG/DL (70-110)
[2017-09-12 06:44] LABS: GLUCOMETER DEV NAME(LOC) 6N 1E; GLUCOSE,POINT OF CARE 190 MG/DL (70-110)
[2017-09-12 06:50] LABS: BASOPHILS % (AUTO) 0.3 % (0.0-2.0); EOSINOPHILS % (AUTO) 2.3 % (1.0-6.0); HEMATOCRIT 31.1 % (36-46); HEMOGLOBIN 10.5 g/dL (12.0-16.0); LYMPHOCYTES # (AUTO) 1.6 K/uL (1.0-4.8); LYMPHOCYTES % (AUTO) 13.1 % (22.0-44.0); MEAN CORPUSCULAR HGB CONC 33.8 G/dL (31.0-37.0); MEAN CORPUSCULAR VOLUME 86 fL (80-100); MONOCYTES # (AUTO) 1.3 K/uL (0.1-1.0); MONOCYTES % (AUTO) 10.9 % (2.0-9.0); NEUTROPHILS # (AUTO) 9.1 K/uL (1.8-7.7); NEUTROPHILS % (AUTO) 73.4 % (40.0-70.0); PLATELET COUNT (AUTO) 234 K/uL (150-450); RED BLOOD CELL COUNT(AUTO) 3.62 MIL/uL (4.00-5.20); RED CELL DISTRIBUTION WIDTH 17.1 % (11.5-14.5)
[2017-09-12 07:05] LABS: CALCIUM, TOTAL 8.8 mg/dL (8.8-10.5); CREATININE 1.39 mg/dL (0.60-1.30); POTASSIUM 3.5 mmol/L (3.5-5.1); VANCOMYCIN,RANDOM 21.1 mcg/mL (25.0-50.0)
[2017-09-12] MEDS: DOCUSATE SODIUM 100 MG CAPSULE PO SCH ×2 (08:12→21:00)
[2017-09-12] MEDS: ASPIRIN 81 MG CHEWABLE TABLET PO SCH (08:12)
[2017-09-12] MEDS: PANTOPRAZOLE SODIUM 40 MG DR TABLET PO SCH (08:12)
[2017-09-12] MEDS: HEPARIN SODIUM,PORCINE 5,000 UNITS/ML VIAL SQ SCH ×2 (08:12→16:34)
[2017-09-12 08:30] VITALS: BP 110/60
[2017-09-12 11:34] LABS: GLUCOMETER DEV NAME(LOC) 6N 2D; GLUCOSE,POINT OF CARE 206 MG/DL (70-110)
[2017-09-12] MEDS: INSULIN LISPRO 100 UNITS/ML SQ SCH ×2 (11:56→18:11)
[2017-09-12 12:07] VITALS: BP 109/59
[2017-09-12 15:55] VITALS: BP 131/63
[2017-09-12 17:49] LABS: GLUCOMETER DEV NAME(LOC) 6N 2D; GLUCOSE,POINT OF CARE 195 MG/DL (70-110)
[2017-09-12] MEDS: VANCOMYCIN HCL 750 MG in DEXTROSE 5%-WATER 250 ML IV SCH (18:42)
[2017-09-12 20:08] VITALS: BP 110/54
[2017-09-12] MEDS: ATORVASTATIN CALCIUM 20 MG TABLET PO SCH (21:00)
[2017-09-12 21:53] LABS: GLUCOMETER DEV NAME(LOC) 6N 1E; GLUCOSE,POINT OF CARE 216 MG/DL (70-110)
[2017-09-13 00:03] VITALS: BP 134/69
[2017-09-13] MEDS: HEPARIN SODIUM,PORCINE 5,000 UNITS/ML VIAL SQ SCH ×3 (00:11→16:00)
[2017-09-13 04:48] VITALS: BP 101/60
[2017-09-13] MEDS: OxyCODONE HCL/ACETAMINOPHEN 5-325 MG TABLET PO PRN (06:11)
[2017-09-13] MEDS: VANCOMYCIN HCL 750 MG in DEXTROSE 5%-WATER 250 ML IV SCH (06:12)
[2017-09-13] MEDS: INSULIN LISPRO 100 UNITS/ML SQ PRN ×2 (06:20→12:15)
[2017-09-13 06:49] LABS: GLUCOMETER DEV NAME(LOC) 6N 1E; GLUCOSE,POINT OF CARE 156 MG/DL (70-110)
[2017-09-13 07:56] LABS: CREATININE 1.29 mg/dL (0.60-1.30); POTASSIUM 4.1 mmol/L (3.5-5.1)
[2017-09-13 08:09] VITALS: BP 117/60
[2017-09-13] MEDS: DOCUSATE SODIUM 100 MG CAPSULE PO SCH (08:13)
[2017-09-13] MEDS: ASPIRIN 81 MG CHEWABLE TABLET PO SCH (08:14)
[2017-09-13] MEDS: PANTOPRAZOLE SODIUM 40 MG DR TABLET PO SCH (08:14)
[2017-09-13] MEDS: INSULIN LISPRO 100 UNITS/ML SQ SCH ×2 (08:16→12:15)
[2017-09-13 11:19] VITALS: BP 123/63
[2017-09-13 14:04] LABS: GLUCOMETER DEV NAME(LOC) 6N 2D; GLUCOSE,POINT OF CARE 166 MG/DL (70-110)
[2017-09-13 16:12] VITALS: BP 103/56
== END 2017-09-13 17:00 | DRG 872 ==
LOC: EMS 11:19 → 6N 18:24
PROVIDERS: ADMIT Internal Medicine; ATTEND Internal Medicine
PROC: 05H633Z Insertion of Infusion Device into Left Subclavian Vein, Percutaneous Approach (ICD-10-PCS; principal; 2017-09-11)
PROC: B547ZZA Ultrasonography of Left Subclavian Vein, Guidance (ICD-10-PCS; 2017-09-11)
DX: A41.9 Sepsis, unspecified organism (principal); L03.116 Cellulitis of left lower limb; N17.9 Acute kidney failure, unspecified; I13.0 Hypertensive heart and chronic kidney disease with heart failure and stage 1 through stage 4 chronic kidney disease, or unspecified chronic kidney disease; L02.419 Cutaneous abscess of limb, unspecified; Z68.41 Body mass index [BMI] 40.0-44.9, adult; E66.9 Obesity, unspecified; I50.9 Heart failure, unspecified; I25.10 Atherosclerotic heart disease of native coronary artery without angina pectoris; N18.9 Chronic kidney disease, unspecified; E11.22 Type 2 diabetes mellitus with diabetic chronic kidney disease; E78.00 Pure hypercholesterolemia, unspecified; E11.40 Type 2 diabetes mellitus with diabetic neuropathy, unspecified; F41.9 Anxiety disorder, unspecified; Z90.710 Acquired absence of both cervix and uterus; Z95.1 Presence of aortocoronary bypass graft; Z83.3 Family history of diabetes mellitus; Z82.49 Family history of ischemic heart disease and other diseases of the circulatory system; Z79.4 Long term (current) use of insulin
CPT/HCPCS: 36245; 73701; 76937; 83605; 87040; 87081; 87086; 93005; 93971; 96365; 96368; 96372; 99285; J0696; J1644; J1815; J3370; J7030; J7050; J7060

== ENCOUNTER 2019-01-13 11:23 | Inpatient (IN) | payer OTHER ==
[~2019-01-13] VITALS: Ht 175.3 cm; Wt 116.0 kg
[~2019-01-13 11:23] MED LIST changes: -AMLO-512 PO; +AMLO10TA7 PO; +AMOX1TAB15 PO; +ASCO500 PO; -BUME1TAB17 PO; -FAMO20 PO; +HYDR25TA84 PO
[2019-01-13] MEDS ORDERED: PANT40TA25 PO (11:42)
[2019-01-13] MEDS ORDERED: SODIUM CHLORIDE 0.9% 3,600 ML IV ONE (12:06)
[2019-01-13] MEDS ORDERED: VANCOMYCIN HCL 1 GM/D5% WATER 200 ML IV ONE ×2 (12:15→21:00)
[2019-01-13] MEDS ORDERED: 0.9% SODIUM CHLORIDE 10 ML SYRINGE IVP PRN ×2 (12:15→12:45)
[2019-01-13] MEDS ORDERED: ACETAMINOPHEN 325 MG TABLET PO PRN (12:45)
[2019-01-13] MEDS ORDERED: ONDANSETRON HCL 4 MG/2 ML VIAL IVP PRN (12:45)
[2019-01-13] MEDS ORDERED: DEXTROSE 50%-WATER 25 GM/50 ML SYRINGE IVP PRN (14:15)
[2019-01-13] MEDS ORDERED: BISACODYL 10 MG RECTAL RECTAL SUPPOSITORY PR PRN (14:15)
[2019-01-13] MEDS ORDERED: MORPHINE SULFATE 2 MG/ML SYRINGE IVP PRN (14:15)
[2019-01-13] MEDS ORDERED: LORazepam 2 MG/ML VIAL IVP ONE (14:15)
[2019-01-13 14:22] LABS: BILIRUBIN,URINE NEGATIVE (NEGATIVE); GLUCOSE, URINE (UA) NEGATIVE (NEGATIVE); KETONES,URINE NEGATIVE (NEGATIVE); NITRATE,URINE NEGATIVE (NEGATIVE); OCCULT BLOOD,URINE SMALL (NEGATIVE); PROTEIN,URINE SEE CONFIRM (NEGATIVE); UROBILINOGEN,URINE 0.2 mg/dL (<=1.0)
[2019-01-13 14:24] LABS: APPEARANCE,URINE SLIGHTLY CLOUDY (CLEAR); LEUKOCYTE ESTERASE ,URINE TRACE (NEGATIVE)
[2019-01-13 14:25] LABS: BACTERIA,URINE Moderate /HPF (None Seen); RBC,URINE 0-2 /HPF (0-2); SQUAMOUS EPITHELIAL CELL,UR Moderate /LPF (None Seen); SULFOSALICYLIC ACID,URINE 1+ (Negative); WBC,URINE 0-2 /HPF (0-5)
[2019-01-13 14:27] LABS: BASOPHILS % (AUTO) 0.5 % (0.0-2.0); EOSINOPHILS % (AUTO) 0.1 % (1.0-6.0); HEMATOCRIT 30.6 % (36-46); HEMOGLOBIN 10.3 g/dL (12.0-16.0); LYMPHOCYTES # (AUTO) 1.8 K/uL (1.0-4.8); LYMPHOCYTES % (AUTO) 14.8 % (22.0-44.0); MEAN CORPUSCULAR HEMOGLOBIN 28.5 pg (26.0-34.0); MEAN CORPUSCULAR HGB CONC 33.8 G/dL (31.0-37.0); MEAN CORPUSCULAR VOLUME 84 fL (80-100); MONOCYTES # (AUTO) 1.1 K/uL (0.1-1.0); MONOCYTES % (AUTO) 8.9 % (2.0-9.0); NEUTROPHILS # (AUTO) 9.4 K/uL (1.8-7.7); NEUTROPHILS % (AUTO) 75.7 % (40.0-70.0); PLATELET COUNT (AUTO) 388 K/uL (150-450); RED BLOOD CELL COUNT(AUTO) 3.63 MIL/uL (4.00-5.20); RED CELL DISTRIBUTION WIDTH 15.6 % (11.5-14.5)
[2019-01-13 14:43] LABS: INR 1.1 (0.9-1.1); PROTHROMBIN TIME 11.1 SEC (9.4-11.6)
[2019-01-13 14:45] LABS: LACTIC ACID 0.7 mmol/L (0.4-2.0)
[2019-01-13] MEDS ORDERED: PIPERACILLIN/TAZO 3.375 GM/D5W 50 ML IV ONE (14:45)
[2019-01-13 14:52] LABS: CALCIUM, TOTAL 8.6 mg/dL (8.8-10.5); CREATININE 1.21 mg/dL (0.60-1.30); POTASSIUM 3.6 mmol/L (3.5-5.1)
[2019-01-13 14:57] LABS: ALBUMIN 2.4 g/dL (3.4-5.0); BILIRUBIN,TOTAL 0.8 mg/dL (0.1-1.0); TOTAL PROTEIN, SERUM 7.7 g/dL (6.4-8.2)
[2019-01-13] MEDS: HEPARIN SODIUM,PORCINE 5,000 UNITS/ML VIAL SQ SCH (17:09)
[2019-01-13] MEDS: PIPERACILLIN/TAZO 3.375 GM/D5W 50 ML IV SCH ×2 (17:09→22:26)
[2019-01-13 18:08] VITALS: BP 128/59
[2019-01-13] MEDS: INSULIN LISPRO 100 UNITS/ML SQ PRN ×2 (18:41→20:53)
[2019-01-13 19:29] VITALS: BP 134/62
[2019-01-13 19:58] LABS: GLUCOMETER DEV NAME(LOC) 6N.1; GLUCOSE,POINT OF CARE 158 MG/DL (70-110)
[2019-01-13] MEDS ORDERED: SODIUM CHLORIDE 0.9% 500 ML IV ONE (19:59)
[2019-01-13] MEDS: DOCUSATE SODIUM 100 MG CAPSULE PO SCH (20:36)
[2019-01-13 21:39] LABS: GLUCOMETER DEV NAME(LOC) 6N.1; GLUCOSE,POINT OF CARE 210 MG/DL (70-110)
[2019-01-13 23:56] VITALS: BP 124/52
[2019-01-14] MEDS: HEPARIN SODIUM,PORCINE 5,000 UNITS/ML VIAL SQ SCH ×4 (00:02→23:51)
[2019-01-14] MEDS: ACETAMINOPHEN 325 MG TABLET PO PRN (00:03)
[2019-01-14] MEDS: PIPERACILLIN/TAZO 3.375 GM/D5W 50 ML IV SCH ×4 (03:50→21:40)
[2019-01-14 04:31] VITALS: BP 127/54
[2019-01-14] MEDS: VANCOMYCIN HCL 1 GM/D5% WATER 200 ML IV SCH ×2 (06:18→18:40)
[2019-01-14] MEDS: INSULIN LISPRO 100 UNITS/ML SQ PRN ×4 (06:19→20:28)
[2019-01-14 07:44] VITALS: BP 120/54
[2019-01-14 08:18] LABS: CALCIUM, TOTAL 8.6 mg/dL (8.8-10.5); CREATININE 1.3 mg/dL (0.60-1.30); POTASSIUM 3.5 mmol/L (3.5-5.1)
[2019-01-14] MEDS: FAMOTIDINE 20 MG TABLET PO SCH (10:15)
[2019-01-14] MEDS: DOCUSATE SODIUM 100 MG CAPSULE PO SCH ×2 (10:15→20:28)
[2019-01-14] MEDS: INSULIN GLARGINE,HUM.REC.ANLOG 100 UNITS/ML SQ SCH (10:17)
[2019-01-14] MEDS: OxyCODONE HCL/ACETAMINOPHEN 5-325 MG TABLET PO PRN ×2 (11:05→18:59)
[2019-01-14 11:15] VITALS: BP 120/56
[2019-01-14 12:38] LABS: GLUCOMETER DEV NAME(LOC) 6N.1; GLUCOSE,POINT OF CARE 305 MG/DL (70-110)
[2019-01-14 12:38] LABS: GLUCOMETER DEV NAME(LOC) 6N.1; GLUCOSE,POINT OF CARE 203 MG/DL (70-110)
[2019-01-14 15:05] VITALS: BP 122/57
[2019-01-14 17:42] LABS: GLUCOMETER DEV NAME(LOC) 6N.1; GLUCOSE,POINT OF CARE 217 MG/DL (70-110)
[2019-01-14 19:42] VITALS: BP 128/57
[2019-01-14 22:02] LABS: GLUCOMETER DEV NAME(LOC) 6N.1; GLUCOSE,POINT OF CARE 216 MG/DL (70-110)
[2019-01-14 23:40] VITALS: BP 125/57
[2019-01-15] MEDS: PIPERACILLIN/TAZO 3.375 GM/D5W 50 ML IV SCH ×2 (03:45→09:54)
[2019-01-15 04:35] VITALS: BP 135/55
[2019-01-15] MEDS: VANCOMYCIN HCL 1 GM/D5% WATER 200 ML IV SCH (06:10)
[2019-01-15] MEDS: INSULIN LISPRO 100 UNITS/ML SQ PRN ×4 (06:10→20:50)
[2019-01-15] MEDS ORDERED: BACITRACIN 50,000 UNITS/VIAL ONE (07:00)
[2019-01-15] MEDS ORDERED: SODIUM CL IRRIG SOLN BAG 3,000 ML IRRIG ONE (07:00)
[2019-01-15] MEDS ORDERED: LIDOCAINE/PF 1% 30 ML VIAL ONE (07:01)
[2019-01-15] MEDS ORDERED: BUPIVACAINE HCL/PF 0.5% 30 ML VIAL ONE (07:01)
[2019-01-15 07:10] LABS: BASOPHILS % (AUTO) 0.3 % (0.0-2.0); EOSINOPHILS % (AUTO) 2.1 % (1.0-6.0); HEMATOCRIT 29.7 % (36-46); HEMOGLOBIN 9.7 g/dL (12.0-16.0); LYMPHOCYTES # (AUTO) 1.9 K/uL (1.0-4.8); MEAN CORPUSCULAR HEMOGLOBIN 28.1 pg (26.0-34.0); MEAN CORPUSCULAR HGB CONC 32.8 G/dL (31.0-37.0); MEAN CORPUSCULAR VOLUME 86 fL (80-100); MONOCYTES # (AUTO) 0.7 K/uL (0.1-1.0); MONOCYTES % (AUTO) 6.5 % (2.0-9.0); NEUTROPHILS # (AUTO) 8.4 K/uL (1.8-7.7); NEUTROPHILS % (AUTO) 74.1 % (40.0-70.0); PLATELET COUNT (AUTO) 385 K/uL (150-450); RED BLOOD CELL COUNT(AUTO) 3.46 MIL/uL (4.00-5.20); RED CELL DISTRIBUTION WIDTH 16.2 % (11.5-14.5)
[2019-01-15 07:35] LABS: CALCIUM, TOTAL 8.3 mg/dL (8.8-10.5); CREATININE 1.23 mg/dL (0.60-1.30); POTASSIUM 3.5 mmol/L (3.5-5.1)
[2019-01-15] MEDS ORDERED: SODIUM CHLORIDE 0.9% 100 ML ONE (07:42)
[2019-01-15 07:46] LABS: GLUCOMETER DEV NAME(LOC) 6N.1; GLUCOSE,POINT OF CARE 218 MG/DL (70-110)
[2019-01-15] MEDS: HEPARIN SODIUM,PORCINE 5,000 UNITS/ML VIAL SQ SCH ×2 (08:00→16:32)
[2019-01-15] MEDS ORDERED: RINGERS SOLUTION,LACTATED 1,000 ML IV ONE (08:14)
[2019-01-15 09:34] VITALS: BP 123/52
[2019-01-15] MEDS: FAMOTIDINE 20 MG TABLET PO SCH (09:54)
[2019-01-15] MEDS: DOCUSATE SODIUM 100 MG CAPSULE PO SCH ×2 (09:54→20:44)
[2019-01-15] MEDS: INSULIN GLARGINE,HUM.REC.ANLOG 100 UNITS/ML SQ SCH (09:54)
[2019-01-15] MEDS: METOPROLOL TARTRATE 25 MG TABLET PO SCH ×2 (09:54→20:44)
[2019-01-15] MEDS: OxyCODONE HCL/ACETAMINOPHEN 5-325 MG TABLET PO PRN ×3 (10:41→20:44)
[2019-01-15 11:15] VITALS: BP 122/60
[2019-01-15] MEDS: LINEZOLID 600 MG TABLET PO SCH ×2 (12:15→20:44)
[2019-01-15] MEDS: LEVOFLOXACIN 250 MG TABLET PO SCH (12:15)
[2019-01-15 13:28] LABS: GLUCOMETER DEV NAME(LOC) 6N.1; GLUCOSE,POINT OF CARE 344 MG/DL (70-110)
[2019-01-15 16:18] VITALS: BP 138/59
[2019-01-15 19:59] VITALS: BP 141/69
[2019-01-15] MEDS: ATORVASTATIN CALCIUM 40 MG TABLET PO SCH (20:44)
[2019-01-15] MEDS: AmLODIPine BESYLATE 10 MG TABLET PO SCH (20:44)
[2019-01-15 21:40] LABS: GLUCOMETER DEV NAME(LOC) 6N.1; GLUCOSE,POINT OF CARE 306 MG/DL (70-110)
[2019-01-15 21:40] LABS: GLUCOMETER DEV NAME(LOC) 6N.1; GLUCOSE,POINT OF CARE 227 MG/DL (70-110)
[2019-01-15 23:16] VITALS: BP 117/58
[2019-01-16] MEDS: HEPARIN SODIUM,PORCINE 5,000 UNITS/ML VIAL SQ SCH ×3 (01:18→16:26)
[2019-01-16 04:35] VITALS: BP 128/55
[2019-01-16] MEDS ORDERED: FentaNYL CITRATE-PF 100 MCG/2 ML VIAL IVP ONE (05:47)
[2019-01-16] MEDS: LORazepam 1 MG TABLET PO PRN (06:35)
[2019-01-16] MEDS: INSULIN LISPRO 100 UNITS/ML SQ PRN ×4 (06:38→20:56)
[2019-01-16 06:47] LABS: BASOPHILS % (AUTO) 0.2 % (0.0-2.0); EOSINOPHILS % (AUTO) 1.6 % (1.0-6.0); HEMATOCRIT 30.5 % (36-46); HEMOGLOBIN 10.2 g/dL (12.0-16.0); LYMPHOCYTES # (AUTO) 2.2 K/uL (1.0-4.8); LYMPHOCYTES % (AUTO) 22.3 % (22.0-44.0); MEAN CORPUSCULAR HEMOGLOBIN 28.3 pg (26.0-34.0); MEAN CORPUSCULAR HGB CONC 33.5 G/dL (31.0-37.0); MEAN CORPUSCULAR VOLUME 84 fL (80-100); MONOCYTES # (AUTO) 0.6 K/uL (0.1-1.0); MONOCYTES % (AUTO) 5.8 % (2.0-9.0); NEUTROPHILS # (AUTO) 6.8 K/uL (1.8-7.7); NEUTROPHILS % (AUTO) 70.1 % (40.0-70.0); PLATELET COUNT (AUTO) 437 K/uL (150-450); RED BLOOD CELL COUNT(AUTO) 3.61 MIL/uL (4.00-5.20)
[2019-01-16 06:58] LABS: CALCIUM, TOTAL 8.7 mg/dL (8.8-10.5); CREATININE 1.11 mg/dL (0.60-1.30); POTASSIUM 3.4 mmol/L (3.5-5.1)
[2019-01-16 07:20] LABS: GLUCOMETER DEV NAME(LOC) 6N.1; GLUCOSE,POINT OF CARE 183 MG/DL (70-110)
[2019-01-16 07:32] VITALS: BP 148/65
[2019-01-16] MEDS: LEVOFLOXACIN 250 MG TABLET PO SCH (08:51)
[2019-01-16] MEDS: LINEZOLID 600 MG TABLET PO SCH ×2 (08:51→20:51)
[2019-01-16] MEDS: DOCUSATE SODIUM 100 MG CAPSULE PO SCH ×2 (08:52→20:51)
[2019-01-16] MEDS: METOPROLOL TARTRATE 25 MG TABLET PO SCH ×2 (08:52→20:50)
[2019-01-16] MEDS: FAMOTIDINE 20 MG TABLET PO SCH (08:52)
[2019-01-16] MEDS: INSULIN GLARGINE,HUM.REC.ANLOG 100 UNITS/ML SQ SCH (08:55)
[2019-01-16 11:29] VITALS: BP 145/61
[2019-01-16] MEDS ORDERED: AMOX TR/POT CLAV 875 MG/125 MG TABLET PO SCH (13:15)
[2019-01-16 13:52] LABS: GLUCOMETER DEV NAME(LOC) 6N.1; GLUCOSE,POINT OF CARE 191 MG/DL (70-110)
[2019-01-16] MEDS: OxyCODONE HCL/ACETAMINOPHEN 5-325 MG TABLET PO PRN ×2 (14:23→20:50)
[2019-01-16] MEDS ORDERED: POTASSIUM CHLORIDE 20 MEQ ER TABLET PO PRN (14:30)
[2019-01-16 15:22] VITALS: BP 141/71
[2019-01-16 20:06] LABS: GLUCOMETER DEV NAME(LOC) 6N.1; GLUCOSE,POINT OF CARE 248 MG/DL (70-110)
[2019-01-16 20:12] VITALS: BP 114/49
[2019-01-16] MEDS: AmLODIPine BESYLATE 10 MG TABLET PO SCH (20:50)
[2019-01-16] MEDS: ATORVASTATIN CALCIUM 40 MG TABLET PO SCH (20:50)
[2019-01-16 21:16] LABS: GLUCOMETER DEV NAME(LOC) 6N.1; GLUCOSE,POINT OF CARE 253 MG/DL (70-110)
[2019-01-17] VITALS (7 sets, daily range): BP systolic 108–139; BP diastolic 55–74
[2019-01-17] MEDS: HEPARIN SODIUM,PORCINE 5,000 UNITS/ML VIAL SQ SCH ×4 (00:36→23:22)
[2019-01-17] MEDS: INSULIN LISPRO 100 UNITS/ML SQ PRN ×4 (06:22→20:54)
[2019-01-17 06:31] LABS: GLUCOMETER DEV NAME(LOC) 6N.1; GLUCOSE,POINT OF CARE 186 MG/DL (70-110)
[2019-01-17] MEDS: LEVOFLOXACIN 250 MG TABLET PO SCH (08:44)
[2019-01-17] MEDS: MULTIVITAMINS WITH MINERALS, THERAPEUTIC TABLET PO SCH (08:44)
[2019-01-17] MEDS: INSULIN GLARGINE,HUM.REC.ANLOG 100 UNITS/ML SQ SCH (08:44)
[2019-01-17] MEDS: FAMOTIDINE 20 MG TABLET PO SCH (08:44)
[2019-01-17] MEDS: ASCORBIC ACID 500 MG TABLET PO SCH (08:44)
[2019-01-17] MEDS: METOPROLOL TARTRATE 25 MG TABLET PO SCH ×2 (08:44→20:44)
[2019-01-17] MEDS: LINEZOLID 600 MG TABLET PO SCH ×2 (08:44→20:55)
[2019-01-17] MEDS: DOCUSATE SODIUM 100 MG CAPSULE PO SCH ×2 (08:48→20:52)
[2019-01-17 12:23] LABS: GLUCOMETER DEV NAME(LOC) 6N.1; GLUCOSE,POINT OF CARE 191 MG/DL (70-110)
[2019-01-17 17:59] LABS: GLUCOMETER DEV NAME(LOC) 6N.1; GLUCOSE,POINT OF CARE 243 MG/DL (70-110)
[2019-01-17] MEDS: ATORVASTATIN CALCIUM 40 MG TABLET PO SCH (20:43)
[2019-01-17] MEDS: AmLODIPine BESYLATE 10 MG TABLET PO SCH (20:44)
[2019-01-17] MEDS: ACETAMINOPHEN 325 MG TABLET PO PRN (20:45)
[2019-01-17 23:31] LABS: GLUCOMETER DEV NAME(LOC) 6N.1; GLUCOSE,POINT OF CARE 301 MG/DL (70-110)
[2019-01-18 06:55] LABS: GLUCOMETER DEV NAME(LOC) 6N.1; GLUCOSE,POINT OF CARE 226 MG/DL (70-110)
[2019-01-18] MEDS: INSULIN LISPRO 100 UNITS/ML SQ PRN ×3 (06:55→17:10)
[2019-01-18 06:57] VITALS: BP 122/57
[2019-01-18 07:51] VITALS: BP 147/70
[2019-01-18] MEDS: MULTIVITAMINS WITH MINERALS, THERAPEUTIC TABLET PO SCH (08:20)
[2019-01-18] MEDS: HEPARIN SODIUM,PORCINE 5,000 UNITS/ML VIAL SQ SCH ×3 (08:20→23:25)
[2019-01-18] MEDS: FAMOTIDINE 20 MG TABLET PO SCH (08:20)
[2019-01-18] MEDS: ASCORBIC ACID 500 MG TABLET PO SCH (08:20)
[2019-01-18] MEDS: METOPROLOL TARTRATE 25 MG TABLET PO SCH ×2 (08:20→20:07)
[2019-01-18] MEDS: LINEZOLID 600 MG TABLET PO SCH ×2 (08:20→20:07)
[2019-01-18] MEDS: DOCUSATE SODIUM 100 MG CAPSULE PO SCH ×2 (08:21→20:32)
[2019-01-18] MEDS: INSULIN GLARGINE,HUM.REC.ANLOG 100 UNITS/ML SQ SCH (08:21)
[2019-01-18 11:24] VITALS: BP 109/61
[2019-01-18] MEDS: OxyCODONE HCL/ACETAMINOPHEN 5-325 MG TABLET PO PRN ×2 (13:59→20:06)
[2019-01-18 15:28] VITALS: BP 169/78
[2019-01-18 17:14] VITALS: BP 144/67
[2019-01-18 19:30] VITALS: BP 139/82
[2019-01-18 19:36] LABS: GLUCOMETER DEV NAME(LOC) 6N.1; GLUCOSE,POINT OF CARE 270 MG/DL (70-110)
[2019-01-18 19:36] LABS: GLUCOMETER DEV NAME(LOC) 6N.1; GLUCOSE,POINT OF CARE 278 MG/DL (70-110)
[2019-01-18] MEDS: AmLODIPine BESYLATE 10 MG TABLET PO SCH (20:06)
[2019-01-18] MEDS: ATORVASTATIN CALCIUM 40 MG TABLET PO SCH (20:07)
[2019-01-18] MEDS ORDERED: INSULIN GLARGINE,HUM.REC.ANLOG 100 UNITS/ML SQ SCH (21:00)
[2019-01-18] MEDS: GABAPENTIN 100 MG CAPSULE PO SCH (21:04)
[2019-01-18] MEDS: LORazepam 1 MG TABLET PO PRN (23:24)
[2019-01-18] MEDS: ACETAMINOPHEN 325 MG TABLET PO PRN (23:25)
[2019-01-19 03:31] LABS: GLUCOMETER DEV NAME(LOC) 6N.1; GLUCOSE,POINT OF CARE 273 MG/DL (70-110)
[2019-01-19 04:00] VITALS: BP 128/70
[2019-01-19] MEDS: OxyCODONE HCL/ACETAMINOPHEN 5-325 MG TABLET PO PRN ×2 (06:36→12:17)
[2019-01-19] MEDS: INSULIN LISPRO 100 UNITS/ML SQ PRN ×3 (06:40→17:00)
[2019-01-19 08:39] VITALS: BP 145/75
[2019-01-19] MEDS: HEPARIN SODIUM,PORCINE 5,000 UNITS/ML VIAL SQ SCH ×2 (09:04→15:49)
[2019-01-19] MEDS: GABAPENTIN 100 MG CAPSULE PO SCH (09:04)
[2019-01-19] MEDS: FAMOTIDINE 20 MG TABLET PO SCH (09:04)
[2019-01-19] MEDS: ASCORBIC ACID 500 MG TABLET PO SCH (09:04)
[2019-01-19] MEDS: LINEZOLID 600 MG TABLET PO SCH (09:04)
[2019-01-19] MEDS: DOCUSATE SODIUM 100 MG CAPSULE PO SCH (09:04)
[2019-01-19] MEDS: METOPROLOL TARTRATE 25 MG TABLET PO SCH (09:05)
[2019-01-19] MEDS: MULTIVITAMINS WITH MINERALS, THERAPEUTIC TABLET PO SCH (09:05)
[2019-01-19] MEDS: INSULIN GLARGINE,HUM.REC.ANLOG 100 UNITS/ML SQ SCH (09:08)
[2019-01-19 11:46] VITALS: BP 124/60
[2019-01-19] MEDS: GABAPENTIN 300 MG CAPSULE PO SCH ×3 (15:49→15:57)
[2019-01-19] MEDS ORDERED: GABAPENTIN 300 MG CAPSULE PO SCH (16:00)
[2019-01-19 16:06] LABS: BASOPHILS % (AUTO) 0.7 % (0.0-2.0); EOSINOPHILS % (AUTO) 2.1 % (1.0-6.0); HEMATOCRIT 32.8 % (36-46); HEMOGLOBIN 10.9 g/dL (12.0-16.0); LYMPHOCYTES # (AUTO) 2.6 K/uL (1.0-4.8); LYMPHOCYTES % (AUTO) 28.5 % (22.0-44.0); MEAN CORPUSCULAR HEMOGLOBIN 28.6 pg (26.0-34.0); MEAN CORPUSCULAR HGB CONC 33.2 G/dL (31.0-37.0); MEAN CORPUSCULAR VOLUME 86 fL (80-100); MONOCYTES # (AUTO) 0.6 K/uL (0.1-1.0); MONOCYTES % (AUTO) 6.3 % (2.0-9.0); NEUTROPHILS # (AUTO) 5.6 K/uL (1.8-7.7); NEUTROPHILS % (AUTO) 62.4 % (40.0-70.0); PLATELET COUNT (AUTO) 513 K/uL (150-450); RED BLOOD CELL COUNT(AUTO) 3.81 MIL/uL (4.00-5.20)
[2019-01-19 16:20] LABS: CREATININE 1.3 mg/dL (0.60-1.30); POTASSIUM 4.9 mmol/L (3.5-5.1)
[2019-01-19 16:21] LABS: ALBUMIN 2.4 g/dL (3.4-5.0); BILIRUBIN,TOTAL 0.2 mg/dL (0.1-1.0); CALCIUM, TOTAL 9.1 mg/dL (8.8-10.5); TOTAL PROTEIN, SERUM 8.2 g/dL (6.4-8.2)
[2019-01-19 17:03] VITALS: BP 120/64
[2019-01-19] MEDS ORDERED: PENICILLIN V POTASSIUM 500 MG TABLET PO SCH (18:00)
[2019-01-19 23:44] LABS: GLUCOMETER DEV NAME(LOC) 6N.1; GLUCOSE,POINT OF CARE 220 MG/DL (70-110)
[2019-01-19 23:45] LABS: GLUCOMETER DEV NAME(LOC) 6N.1; GLUCOSE,POINT OF CARE 302 MG/DL (70-110)
[2019-01-19 23:45] LABS: GLUCOMETER DEV NAME(LOC) 6N.1; GLUCOSE,POINT OF CARE 253 MG/DL (70-110)
== END 2019-01-19 18:50 | DRG 854 ==
LOC: EMS 11:27 → AHU 15:43 → 6N 16:00
PROVIDERS: ADMIT Internal Medicine; ATTEND Internal Medicine
PROC: 0Y6W0Z0 Detachment at Left 4th Toe, Complete, Open Approach (ICD-10-PCS; principal; 2019-01-15 07:30)
DX: A41.9 Sepsis, unspecified organism (principal); I96 Gangrene, not elsewhere classified; E11.52 Type 2 diabetes mellitus with diabetic peripheral angiopathy with gangrene; L03.116 Cellulitis of left lower limb; M86.8X7 Other osteomyelitis, ankle and foot; E11.65 Type 2 diabetes mellitus with hyperglycemia; E78.00 Pure hypercholesterolemia, unspecified; I11.0 Hypertensive heart disease with heart failure; I25.10 Atherosclerotic heart disease of native coronary artery without angina pectoris; I50.9 Heart failure, unspecified; Z82.49 Family history of ischemic heart disease and other diseases of the circulatory system; Z83.3 Family history of diabetes mellitus; Z89.519 Acquired absence of unspecified leg below knee; Z90.710 Acquired absence of both cervix and uterus; Z95.1 Presence of aortocoronary bypass graft
CPT/HCPCS: 83605; 84132; 84145; 87040; 87070; 87081; 87086; 87205; 88305; 88311; 93005; 97116; 97161; 97166; 97530; 97535; J1644; J1815; J2060; J2543; J3010; J3370; J3490; J7040; J7050; J7120

== ENCOUNTER → 2019-01-29 | Outpatient (CLI) | payer OTHER ==
[~2019-01-29] MED LIST changes: -AMOX1TAB15 PO; -BUSP5TAB20 PO; -HYDR25TA84 PO; +PANT40TA25 PO
== END | disposition home or self-care (01) ==
LOC: HBOWC 08:13
PROVIDERS: ATTEND Nurse Practitioner Adult Health
DX: T87.89 Other complications of amputation stump (principal); E11.621 Type 2 diabetes mellitus with foot ulcer; L97.521 Non-pressure chronic ulcer of other part of left foot limited to breakdown of skin; L97.511 Non-pressure chronic ulcer of other part of right foot limited to breakdown of skin; E11.51 Type 2 diabetes mellitus with diabetic peripheral angiopathy without gangrene; E11.69 Type 2 diabetes mellitus with other specified complication; M86.9 Osteomyelitis, unspecified; I10 Essential (primary) hypertension; K21.9 Gastro-esophageal reflux disease without esophagitis; E78.5 Hyperlipidemia, unspecified; Y83.5 Amputation of limb(s) as the cause of abnormal reaction of the patient, or of later complication, without mention of misadventure at the time of the procedure

== ENCOUNTER → 2019-02-05 | Outpatient (CLI) | payer OTHER | END | disposition home or self-care (01) | LOC: HBOWC 08:32 | PROVIDERS: ATTEND Nurse Practitioner Adult Health | DX: T87.89 Other complications of amputation stump (principal); E11.621 Type 2 diabetes mellitus with foot ulcer; L97.521 Non-pressure chronic ulcer of other part of left foot limited to breakdown of skin; L97.511 Non-pressure chronic ulcer of other part of right foot limited to breakdown of skin; E11.52 Type 2 diabetes mellitus with diabetic peripheral angiopathy with gangrene; I96 Gangrene, not elsewhere classified; I11.0 Hypertensive heart disease with heart failure; I50.9 Heart failure, unspecified; E11.69 Type 2 diabetes mellitus with other specified complication; M86.8X7 Other osteomyelitis, ankle and foot; E78.5 Hyperlipidemia, unspecified; I25.10 Atherosclerotic heart disease of native coronary artery without angina pectoris; K21.9 Gastro-esophageal reflux disease without esophagitis; E78.00 Pure hypercholesterolemia, unspecified; G47.30 Sleep apnea, unspecified; Z79.4 Long term (current) use of insulin; Z95.1 Presence of aortocoronary bypass graft; Z90.710 Acquired absence of both cervix and uterus; Z89.519 Acquired absence of unspecified leg below knee; Y83.5 Amputation of limb(s) as the cause of abnormal reaction of the patient, or of later complication, without mention of misadventure at the time of the procedure ==

== ENCOUNTER → 2019-02-19 | Outpatient (CLI) | payer OTHER | END | disposition home or self-care (01) | LOC: HBOWC 08:50 | PROVIDERS: ATTEND Nurse Practitioner Adult Health | DX: T87.89 Other complications of amputation stump (principal); E11.621 Type 2 diabetes mellitus with foot ulcer; L97.521 Non-pressure chronic ulcer of other part of left foot limited to breakdown of skin; L97.511 Non-pressure chronic ulcer of other part of right foot limited to breakdown of skin; E11.52 Type 2 diabetes mellitus with diabetic peripheral angiopathy with gangrene; I96 Gangrene, not elsewhere classified; I11.0 Hypertensive heart disease with heart failure; I50.9 Heart failure, unspecified; E11.69 Type 2 diabetes mellitus with other specified complication; M86.8X7 Other osteomyelitis, ankle and foot; E78.5 Hyperlipidemia, unspecified; I25.10 Atherosclerotic heart disease of native coronary artery without angina pectoris; K21.9 Gastro-esophageal reflux disease without esophagitis; E78.00 Pure hypercholesterolemia, unspecified; G47.30 Sleep apnea, unspecified; Z79.4 Long term (current) use of insulin; Z95.1 Presence of aortocoronary bypass graft; Z90.710 Acquired absence of both cervix and uterus; Z89.519 Acquired absence of unspecified leg below knee; Y83.5 Amputation of limb(s) as the cause of abnormal reaction of the patient, or of later complication, without mention of misadventure at the time of the procedure ==

== ENCOUNTER → 2019-02-26 | Outpatient (CLI) | payer OTHER | END | disposition home or self-care (01) | LOC: HBOWC 08:52 | PROVIDERS: ATTEND Nurse Practitioner Adult Health | DX: T87.89 Other complications of amputation stump (principal); E11.621 Type 2 diabetes mellitus with foot ulcer; L97.521 Non-pressure chronic ulcer of other part of left foot limited to breakdown of skin; L97.511 Non-pressure chronic ulcer of other part of right foot limited to breakdown of skin; E11.52 Type 2 diabetes mellitus with diabetic peripheral angiopathy with gangrene; I96 Gangrene, not elsewhere classified; I11.0 Hypertensive heart disease with heart failure; I50.9 Heart failure, unspecified; E11.69 Type 2 diabetes mellitus with other specified complication; M86.8X7 Other osteomyelitis, ankle and foot; E78.5 Hyperlipidemia, unspecified; I25.10 Atherosclerotic heart disease of native coronary artery without angina pectoris; K21.9 Gastro-esophageal reflux disease without esophagitis; E78.00 Pure hypercholesterolemia, unspecified; G47.30 Sleep apnea, unspecified; Z79.4 Long term (current) use of insulin; Z95.1 Presence of aortocoronary bypass graft; Z90.710 Acquired absence of both cervix and uterus; Z89.519 Acquired absence of unspecified leg below knee; Y83.5 Amputation of limb(s) as the cause of abnormal reaction of the patient, or of later complication, without mention of misadventure at the time of the procedure ==

== ENCOUNTER → 2019-03-05 | Outpatient (CLI) | payer OTHER | END | disposition home or self-care (01) | LOC: HBOWC 09:32 | PROVIDERS: ATTEND Nurse Practitioner Adult Health | DX: T87.89 Other complications of amputation stump (principal); E11.621 Type 2 diabetes mellitus with foot ulcer; L97.521 Non-pressure chronic ulcer of other part of left foot limited to breakdown of skin; L97.511 Non-pressure chronic ulcer of other part of right foot limited to breakdown of skin; E11.52 Type 2 diabetes mellitus with diabetic peripheral angiopathy with gangrene; I96 Gangrene, not elsewhere classified; I11.0 Hypertensive heart disease with heart failure; I50.9 Heart failure, unspecified; E11.69 Type 2 diabetes mellitus with other specified complication; M86.8X7 Other osteomyelitis, ankle and foot; E78.5 Hyperlipidemia, unspecified; I25.10 Atherosclerotic heart disease of native coronary artery without angina pectoris; K21.9 Gastro-esophageal reflux disease without esophagitis; E78.00 Pure hypercholesterolemia, unspecified; G47.30 Sleep apnea, unspecified; Z79.4 Long term (current) use of insulin; Z95.1 Presence of aortocoronary bypass graft; Z90.710 Acquired absence of both cervix and uterus; Z89.519 Acquired absence of unspecified leg below knee; Y83.5 Amputation of limb(s) as the cause of abnormal reaction of the patient, or of later complication, without mention of misadventure at the time of the procedure ==

== ENCOUNTER → 2019-03-12 | Outpatient (CLI) | payer OTHER ==
[~2019-03-12] MED LIST changes: +ASPI-1111 PO; -ASPI-1182 PO; +BACTDSB PO; +GABA-529 PO; +HYDR-1475 PO; +HYDR-4061 PO; +METO25XL PO; +MULT-711 PO
== END | disposition home or self-care (01) ==
LOC: HBOWC 09:11
PROVIDERS: ATTEND Nurse Practitioner Adult Health
DX: T87.89 Other complications of amputation stump (principal); E11.621 Type 2 diabetes mellitus with foot ulcer; L97.521 Non-pressure chronic ulcer of other part of left foot limited to breakdown of skin; L97.511 Non-pressure chronic ulcer of other part of right foot limited to breakdown of skin; E11.52 Type 2 diabetes mellitus with diabetic peripheral angiopathy with gangrene; I96 Gangrene, not elsewhere classified; I11.0 Hypertensive heart disease with heart failure; I50.9 Heart failure, unspecified; E11.69 Type 2 diabetes mellitus with other specified complication; M86.8X7 Other osteomyelitis, ankle and foot; E78.5 Hyperlipidemia, unspecified; I25.10 Atherosclerotic heart disease of native coronary artery without angina pectoris; K21.9 Gastro-esophageal reflux disease without esophagitis; E78.00 Pure hypercholesterolemia, unspecified; G47.30 Sleep apnea, unspecified; Z79.4 Long term (current) use of insulin; Z95.1 Presence of aortocoronary bypass graft; Z90.710 Acquired absence of both cervix and uterus; Z89.519 Acquired absence of unspecified leg below knee; Y83.5 Amputation of limb(s) as the cause of abnormal reaction of the patient, or of later complication, without mention of misadventure at the time of the procedure

== ENCOUNTER → 2019-03-20 | Outpatient (CLI) | payer OTHER ==
[~2019-03-20] MED LIST changes: +LIDOCAINE 2% 5 ML JELLY TP ONE
== END | disposition home or self-care (01) ==
LOC: HBOWC 08:41
PROVIDERS: ATTEND Podiatrist
DX: T87.89 Other complications of amputation stump (principal); E11.621 Type 2 diabetes mellitus with foot ulcer; L97.526 Non-pressure chronic ulcer of other part of left foot with bone involvement without evidence of necrosis; L97.511 Non-pressure chronic ulcer of other part of right foot limited to breakdown of skin; E11.52 Type 2 diabetes mellitus with diabetic peripheral angiopathy with gangrene; I96 Gangrene, not elsewhere classified; I11.0 Hypertensive heart disease with heart failure; I50.9 Heart failure, unspecified; E11.69 Type 2 diabetes mellitus with other specified complication; M86.8X7 Other osteomyelitis, ankle and foot; E78.5 Hyperlipidemia, unspecified; I25.10 Atherosclerotic heart disease of native coronary artery without angina pectoris; K21.9 Gastro-esophageal reflux disease without esophagitis; E78.00 Pure hypercholesterolemia, unspecified; G47.30 Sleep apnea, unspecified; Z79.4 Long term (current) use of insulin; Z95.1 Presence of aortocoronary bypass graft; Z90.710 Acquired absence of both cervix and uterus; Z89.519 Acquired absence of unspecified leg below knee; Z89.431 Acquired absence of right foot; Y83.5 Amputation of limb(s) as the cause of abnormal reaction of the patient, or of later complication, without mention of misadventure at the time of the procedure
CPT/HCPCS: 11044

== ENCOUNTER → 2019-03-27 | Outpatient (CLI) | payer OTHER ==
[~2019-03-27] MED LIST changes: -LIDOCAINE 2% 5 ML JELLY TP ONE
== END | disposition home or self-care (01) ==
LOC: HBOWC 09:51
PROVIDERS: ATTEND Podiatrist
DX: T87.89 Other complications of amputation stump (principal); E11.621 Type 2 diabetes mellitus with foot ulcer; L97.521 Non-pressure chronic ulcer of other part of left foot limited to breakdown of skin; E11.52 Type 2 diabetes mellitus with diabetic peripheral angiopathy with gangrene; I96 Gangrene, not elsewhere classified; I11.0 Hypertensive heart disease with heart failure; I50.9 Heart failure, unspecified; E11.69 Type 2 diabetes mellitus with other specified complication; M86.8X7 Other osteomyelitis, ankle and foot; E78.5 Hyperlipidemia, unspecified; I25.10 Atherosclerotic heart disease of native coronary artery without angina pectoris; K21.9 Gastro-esophageal reflux disease without esophagitis; E78.00 Pure hypercholesterolemia, unspecified; G47.30 Sleep apnea, unspecified; Z79.4 Long term (current) use of insulin; Z95.1 Presence of aortocoronary bypass graft; Z90.710 Acquired absence of both cervix and uterus; Z89.519 Acquired absence of unspecified leg below knee; Z89.431 Acquired absence of right foot; Y83.5 Amputation of limb(s) as the cause of abnormal reaction of the patient, or of later complication, without mention of misadventure at the time of the procedure

== ENCOUNTER 2019-03-30 00:05 | Emergency (ER) | payer OTHER ==
[~2019-03-30] VITALS: Ht 175.3 cm; Wt 118.2 kg
[~2019-03-30 00:05] MED LIST changes: -BACTDSB PO; -GABA-529 PO; -HYDR-1475 PO; -HYDR-4061 PO; -METO25XL PO; -MULT-711 PO
[2019-03-30] MEDS ORDERED: BACTDSB PO (00:21)
[2019-03-30] MEDS ORDERED: METO25XL PO (00:21)
[2019-03-30] MEDS ORDERED: MULT-711 PO (00:21)
[2019-03-30] MEDS ORDERED: HYDR-1475 PO (00:21)
[2019-03-30] MEDS ORDERED: GABA-529 PO (00:21)
[2019-03-30] MEDS ORDERED: HYDR-4061 PO (00:22)
[2019-03-30 01:20] VITALS: BP 125/59
[2019-03-30] MEDS ORDERED: HYDROCODONE/ACETAMINOPHEN 5-325 MG TABLET PO ONE (02:00)
== END 2019-03-30 02:52 | disposition home or self-care (01) ==
LOC: EMS 00:05
DX: M54.6 Pain in thoracic spine (principal); M54.2 Cervicalgia; E11.9 Type 2 diabetes mellitus without complications; E78.00 Pure hypercholesterolemia, unspecified; I25.10 Atherosclerotic heart disease of native coronary artery without angina pectoris; I11.0 Hypertensive heart disease with heart failure; I50.9 Heart failure, unspecified; F11.10 Opioid abuse, uncomplicated; F41.9 Anxiety disorder, unspecified; Z95.1 Presence of aortocoronary bypass graft; Z90.710 Acquired absence of both cervix and uterus; Z98.890 Other specified postprocedural states; Z79.899 Other long term (current) drug therapy; Z79.82 Long term (current) use of aspirin; Z79.4 Long term (current) use of insulin

== ENCOUNTER → 2019-04-03 | Outpatient (CLI) | payer OTHER ==
[~2019-04-03] MED LIST changes: +BACTDSB PO; +GABA-529 PO; +HYDR-1475 PO; +HYDR-4061 PO; +LIDOCAINE 2%/EPI 1:200,000/PF 10 ML VIAL ONE; -METO25 PO; +METO25XL PO; +MULT-711 PO
== END | disposition home or self-care (01) ==
LOC: HBOWC 09:00
PROVIDERS: ATTEND Podiatrist
DX: T87.89 Other complications of amputation stump (principal); E11.621 Type 2 diabetes mellitus with foot ulcer; L97.522 Non-pressure chronic ulcer of other part of left foot with fat layer exposed; L97.511 Non-pressure chronic ulcer of other part of right foot limited to breakdown of skin; E11.52 Type 2 diabetes mellitus with diabetic peripheral angiopathy with gangrene; I96 Gangrene, not elsewhere classified; I11.0 Hypertensive heart disease with heart failure; I50.9 Heart failure, unspecified; E11.69 Type 2 diabetes mellitus with other specified complication; M86.8X7 Other osteomyelitis, ankle and foot; E78.5 Hyperlipidemia, unspecified; I25.10 Atherosclerotic heart disease of native coronary artery without angina pectoris; K21.9 Gastro-esophageal reflux disease without esophagitis; E78.00 Pure hypercholesterolemia, unspecified; G47.30 Sleep apnea, unspecified; F41.9 Anxiety disorder, unspecified; F11.10 Opioid abuse, uncomplicated; Z79.4 Long term (current) use of insulin; Z95.1 Presence of aortocoronary bypass graft; Z90.710 Acquired absence of both cervix and uterus; Z89.519 Acquired absence of unspecified leg below knee; Z89.431 Acquired absence of right foot; Z79.82 Long term (current) use of aspirin; Z79.899 Other long term (current) drug therapy; Y83.5 Amputation of limb(s) as the cause of abnormal reaction of the patient, or of later complication, without mention of misadventure at the time of the procedure
CPT/HCPCS: 11042

== ENCOUNTER → 2019-04-10 | Outpatient (CLI) | payer OTHER ==
[~2019-04-10] MED LIST changes: -LIDOCAINE 2%/EPI 1:200,000/PF 10 ML VIAL ONE
== END | disposition home or self-care (01) ==
LOC: HBOWC 08:40
PROVIDERS: ATTEND Podiatrist
DX: T87.89 Other complications of amputation stump (principal); E11.621 Type 2 diabetes mellitus with foot ulcer; L97.522 Non-pressure chronic ulcer of other part of left foot with fat layer exposed; L97.511 Non-pressure chronic ulcer of other part of right foot limited to breakdown of skin; E11.52 Type 2 diabetes mellitus with diabetic peripheral angiopathy with gangrene; I96 Gangrene, not elsewhere classified; I11.0 Hypertensive heart disease with heart failure; I50.9 Heart failure, unspecified; E11.69 Type 2 diabetes mellitus with other specified complication; M86.8X7 Other osteomyelitis, ankle and foot; E78.5 Hyperlipidemia, unspecified; I25.10 Atherosclerotic heart disease of native coronary artery without angina pectoris; K21.9 Gastro-esophageal reflux disease without esophagitis; E78.00 Pure hypercholesterolemia, unspecified; G47.30 Sleep apnea, unspecified; F41.9 Anxiety disorder, unspecified; F11.10 Opioid abuse, uncomplicated; Z95.1 Presence of aortocoronary bypass graft; Z90.710 Acquired absence of both cervix and uterus; Z89.519 Acquired absence of unspecified leg below knee; Z89.431 Acquired absence of right foot; Z79.82 Long term (current) use of aspirin; Z79.4 Long term (current) use of insulin; Z79.899 Other long term (current) drug therapy; Y83.5 Amputation of limb(s) as the cause of abnormal reaction of the patient, or of later complication, without mention of misadventure at the time of the procedure
CPT/HCPCS: 11042

== ENCOUNTER → 2019-04-24 | Outpatient (CLI) | payer OTHER ==
[~2019-04-24] MED LIST changes: +LIDOCAINE 2% 5 ML JELLY ONE
== END | disposition home or self-care (01) ==
LOC: HBOWC 08:34
PROVIDERS: ATTEND Podiatrist
DX: T87.89 Other complications of amputation stump (principal); E11.621 Type 2 diabetes mellitus with foot ulcer; L97.525 Non-pressure chronic ulcer of other part of left foot with muscle involvement without evidence of necrosis; L97.511 Non-pressure chronic ulcer of other part of right foot limited to breakdown of skin; E11.52 Type 2 diabetes mellitus with diabetic peripheral angiopathy with gangrene; I96 Gangrene, not elsewhere classified; I11.0 Hypertensive heart disease with heart failure; I50.9 Heart failure, unspecified; E11.69 Type 2 diabetes mellitus with other specified complication; M86.8X7 Other osteomyelitis, ankle and foot; E78.5 Hyperlipidemia, unspecified; I25.10 Atherosclerotic heart disease of native coronary artery without angina pectoris; K21.9 Gastro-esophageal reflux disease without esophagitis; E78.00 Pure hypercholesterolemia, unspecified; G47.30 Sleep apnea, unspecified; F41.9 Anxiety disorder, unspecified; F11.10 Opioid abuse, uncomplicated; Z95.1 Presence of aortocoronary bypass graft; Z90.710 Acquired absence of both cervix and uterus; Z89.519 Acquired absence of unspecified leg below knee; Z89.431 Acquired absence of right foot; Z79.82 Long term (current) use of aspirin; Z79.4 Long term (current) use of insulin; Z79.899 Other long term (current) drug therapy; Y83.5 Amputation of limb(s) as the cause of abnormal reaction of the patient, or of later complication, without mention of misadventure at the time of the procedure
CPT/HCPCS: 11043

== ENCOUNTER → 2019-05-01 | Outpatient (CLI) | payer OTHER ==
[~2019-05-01] MED LIST changes: +CHLORHEXIDINE GLUCONATE 4% 118 ML TOPICAL LIQUID TP ONE; -LIDOCAINE 2% 5 ML JELLY ONE; +LIDOCAINE 2% 5 ML JELLY TP ONE
== END | disposition home or self-care (01) ==
LOC: HBOWC 08:49
PROVIDERS: ATTEND Podiatrist
DX: T87.89 Other complications of amputation stump (principal); E11.621 Type 2 diabetes mellitus with foot ulcer; L97.522 Non-pressure chronic ulcer of other part of left foot with fat layer exposed; L97.511 Non-pressure chronic ulcer of other part of right foot limited to breakdown of skin; E11.52 Type 2 diabetes mellitus with diabetic peripheral angiopathy with gangrene; I96 Gangrene, not elsewhere classified; I11.0 Hypertensive heart disease with heart failure; I50.9 Heart failure, unspecified; E11.69 Type 2 diabetes mellitus with other specified complication; M86.8X7 Other osteomyelitis, ankle and foot; E78.5 Hyperlipidemia, unspecified; I25.10 Atherosclerotic heart disease of native coronary artery without angina pectoris; K21.9 Gastro-esophageal reflux disease without esophagitis; E78.00 Pure hypercholesterolemia, unspecified; G47.30 Sleep apnea, unspecified; F41.9 Anxiety disorder, unspecified; F11.10 Opioid abuse, uncomplicated; Z95.1 Presence of aortocoronary bypass graft; Z90.710 Acquired absence of both cervix and uterus; Z89.519 Acquired absence of unspecified leg below knee; Z89.431 Acquired absence of right foot; Z79.82 Long term (current) use of aspirin; Z79.4 Long term (current) use of insulin; Z79.899 Other long term (current) drug therapy; Y83.5 Amputation of limb(s) as the cause of abnormal reaction of the patient, or of later complication, without mention of misadventure at the time of the procedure
CPT/HCPCS: 11042

== ENCOUNTER → 2019-05-08 | Outpatient (CLI) | payer OTHER ==
[~2019-05-08] MED LIST changes: -CHLORHEXIDINE GLUCONATE 4% 118 ML TOPICAL LIQUID TP ONE; -LIDOCAINE 2% 5 ML JELLY TP ONE
== END | disposition home or self-care (01) ==
LOC: HBOWC 08:38
PROVIDERS: ATTEND Podiatrist
DX: T87.89 Other complications of amputation stump (principal); E11.621 Type 2 diabetes mellitus with foot ulcer; L97.522 Non-pressure chronic ulcer of other part of left foot with fat layer exposed; L97.511 Non-pressure chronic ulcer of other part of right foot limited to breakdown of skin; E11.52 Type 2 diabetes mellitus with diabetic peripheral angiopathy with gangrene; I96 Gangrene, not elsewhere classified; I11.0 Hypertensive heart disease with heart failure; I50.9 Heart failure, unspecified; E11.69 Type 2 diabetes mellitus with other specified complication; M86.8X7 Other osteomyelitis, ankle and foot; E78.5 Hyperlipidemia, unspecified; I25.10 Atherosclerotic heart disease of native coronary artery without angina pectoris; K21.9 Gastro-esophageal reflux disease without esophagitis; E78.00 Pure hypercholesterolemia, unspecified; G47.30 Sleep apnea, unspecified; F41.9 Anxiety disorder, unspecified; F11.10 Opioid abuse, uncomplicated; Z95.1 Presence of aortocoronary bypass graft; Z90.710 Acquired absence of both cervix and uterus; Z89.519 Acquired absence of unspecified leg below knee; Z89.431 Acquired absence of right foot; Z79.82 Long term (current) use of aspirin; Z79.4 Long term (current) use of insulin; Z79.899 Other long term (current) drug therapy; Y83.5 Amputation of limb(s) as the cause of abnormal reaction of the patient, or of later complication, without mention of misadventure at the time of the procedure
CPT/HCPCS: 11042

== ENCOUNTER → 2019-05-15 | Outpatient (CLI) | payer OTHER ==
[~2019-05-15] MED LIST changes: +LIDOCAINE 2% 5 ML JELLY TP ONE
== END | disposition home or self-care (01) ==
LOC: HBOWC 09:02
PROVIDERS: ATTEND Podiatrist
DX: T87.89 Other complications of amputation stump (principal); E11.621 Type 2 diabetes mellitus with foot ulcer; L97.522 Non-pressure chronic ulcer of other part of left foot with fat layer exposed; L97.511 Non-pressure chronic ulcer of other part of right foot limited to breakdown of skin; E11.52 Type 2 diabetes mellitus with diabetic peripheral angiopathy with gangrene; I96 Gangrene, not elsewhere classified; I11.0 Hypertensive heart disease with heart failure; I50.9 Heart failure, unspecified; E11.69 Type 2 diabetes mellitus with other specified complication; M86.8X7 Other osteomyelitis, ankle and foot; E78.5 Hyperlipidemia, unspecified; I25.10 Atherosclerotic heart disease of native coronary artery without angina pectoris; K21.9 Gastro-esophageal reflux disease without esophagitis; E78.00 Pure hypercholesterolemia, unspecified; G47.30 Sleep apnea, unspecified; F41.9 Anxiety disorder, unspecified; F11.10 Opioid abuse, uncomplicated; Z95.1 Presence of aortocoronary bypass graft; Z90.710 Acquired absence of both cervix and uterus; Z89.519 Acquired absence of unspecified leg below knee; Z89.431 Acquired absence of right foot; Z79.82 Long term (current) use of aspirin; Z79.4 Long term (current) use of insulin; Z79.899 Other long term (current) drug therapy; Y83.5 Amputation of limb(s) as the cause of abnormal reaction of the patient, or of later complication, without mention of misadventure at the time of the procedure
CPT/HCPCS: 11042

== ENCOUNTER → 2019-05-22 | Outpatient (CLI) | payer OTHER ==
[~2019-05-22] MED LIST changes: +LIDOCAINE 2% 5 ML JELLY ONE; -LIDOCAINE 2% 5 ML JELLY TP ONE
== END | disposition home or self-care (01) ==
LOC: HBOWC 08:43
PROVIDERS: ATTEND Podiatrist
DX: T87.89 Other complications of amputation stump (principal); E11.621 Type 2 diabetes mellitus with foot ulcer; L97.522 Non-pressure chronic ulcer of other part of left foot with fat layer exposed; L97.511 Non-pressure chronic ulcer of other part of right foot limited to breakdown of skin; E11.52 Type 2 diabetes mellitus with diabetic peripheral angiopathy with gangrene; I96 Gangrene, not elsewhere classified; I11.0 Hypertensive heart disease with heart failure; I50.9 Heart failure, unspecified; E11.69 Type 2 diabetes mellitus with other specified complication; M86.8X7 Other osteomyelitis, ankle and foot; E78.5 Hyperlipidemia, unspecified; I25.10 Atherosclerotic heart disease of native coronary artery without angina pectoris; K21.9 Gastro-esophageal reflux disease without esophagitis; E78.00 Pure hypercholesterolemia, unspecified; G47.30 Sleep apnea, unspecified; F41.9 Anxiety disorder, unspecified; F11.10 Opioid abuse, uncomplicated; Z95.1 Presence of aortocoronary bypass graft; Z90.710 Acquired absence of both cervix and uterus; Z89.519 Acquired absence of unspecified leg below knee; Z89.431 Acquired absence of right foot; Z79.82 Long term (current) use of aspirin; Z79.4 Long term (current) use of insulin; Z79.899 Other long term (current) drug therapy; Y83.5 Amputation of limb(s) as the cause of abnormal reaction of the patient, or of later complication, without mention of misadventure at the time of the procedure
CPT/HCPCS: 11042

== ENCOUNTER → 2019-06-05 | Outpatient (CLI) | payer OTHER ==
[~2019-06-05] MED LIST changes: -LIDOCAINE 2% 5 ML JELLY ONE
== END | disposition home or self-care (01) ==
LOC: HBOWC 08:49
PROVIDERS: ATTEND Podiatrist
DX: T87.89 Other complications of amputation stump (principal); E11.621 Type 2 diabetes mellitus with foot ulcer; L97.522 Non-pressure chronic ulcer of other part of left foot with fat layer exposed; L97.511 Non-pressure chronic ulcer of other part of right foot limited to breakdown of skin; E11.52 Type 2 diabetes mellitus with diabetic peripheral angiopathy with gangrene; I96 Gangrene, not elsewhere classified; I11.0 Hypertensive heart disease with heart failure; I50.9 Heart failure, unspecified; E11.69 Type 2 diabetes mellitus with other specified complication; M86.8X7 Other osteomyelitis, ankle and foot; E78.5 Hyperlipidemia, unspecified; I25.10 Atherosclerotic heart disease of native coronary artery without angina pectoris; K21.9 Gastro-esophageal reflux disease without esophagitis; E78.00 Pure hypercholesterolemia, unspecified; G47.30 Sleep apnea, unspecified; F41.9 Anxiety disorder, unspecified; F11.10 Opioid abuse, uncomplicated; Z95.1 Presence of aortocoronary bypass graft; Z90.710 Acquired absence of both cervix and uterus; Z89.519 Acquired absence of unspecified leg below knee; Z89.431 Acquired absence of right foot; Z79.82 Long term (current) use of aspirin; Z79.4 Long term (current) use of insulin; Z79.899 Other long term (current) drug therapy; Y83.5 Amputation of limb(s) as the cause of abnormal reaction of the patient, or of later complication, without mention of misadventure at the time of the procedure
CPT/HCPCS: 11042

== ENCOUNTER → 2019-06-12 | Outpatient (CLI) | payer OTHER | END | disposition home or self-care (01) | LOC: HBOWC 08:49 | PROVIDERS: ATTEND Podiatrist | DX: T87.89 Other complications of amputation stump (principal); E11.621 Type 2 diabetes mellitus with foot ulcer; L97.511 Non-pressure chronic ulcer of other part of right foot limited to breakdown of skin; L97.524 Non-pressure chronic ulcer of other part of left foot with necrosis of bone; E11.52 Type 2 diabetes mellitus with diabetic peripheral angiopathy with gangrene; I96 Gangrene, not elsewhere classified; I11.0 Hypertensive heart disease with heart failure; I50.9 Heart failure, unspecified; E11.69 Type 2 diabetes mellitus with other specified complication; M86.8X7 Other osteomyelitis, ankle and foot; E78.5 Hyperlipidemia, unspecified; I25.10 Atherosclerotic heart disease of native coronary artery without angina pectoris; K21.9 Gastro-esophageal reflux disease without esophagitis; E78.00 Pure hypercholesterolemia, unspecified; G47.30 Sleep apnea, unspecified; F41.9 Anxiety disorder, unspecified; F11.10 Opioid abuse, uncomplicated; Z95.1 Presence of aortocoronary bypass graft; Z90.710 Acquired absence of both cervix and uterus; Z89.519 Acquired absence of unspecified leg below knee; Z89.431 Acquired absence of right foot; Z79.82 Long term (current) use of aspirin; Z79.4 Long term (current) use of insulin; Z79.899 Other long term (current) drug therapy; Y83.5 Amputation of limb(s) as the cause of abnormal reaction of the patient, or of later complication, without mention of misadventure at the time of the procedure | CPT/HCPCS: 11042 ==

== ENCOUNTER → 2019-06-19 | Outpatient (CLI) | payer OTHER ==
[~2019-06-19] MED LIST changes: +LIDOCAINE 2% 5 ML JELLY TP ONE
== END | disposition home or self-care (01) ==
LOC: HBOWC 08:57
PROVIDERS: ATTEND Podiatrist
DX: T87.89 Other complications of amputation stump (principal); E11.621 Type 2 diabetes mellitus with foot ulcer; L97.511 Non-pressure chronic ulcer of other part of right foot limited to breakdown of skin; L97.524 Non-pressure chronic ulcer of other part of left foot with necrosis of bone; E11.52 Type 2 diabetes mellitus with diabetic peripheral angiopathy with gangrene; I96 Gangrene, not elsewhere classified; I11.0 Hypertensive heart disease with heart failure; I50.9 Heart failure, unspecified; E11.69 Type 2 diabetes mellitus with other specified complication; M86.8X7 Other osteomyelitis, ankle and foot; E78.5 Hyperlipidemia, unspecified; I25.10 Atherosclerotic heart disease of native coronary artery without angina pectoris; K21.9 Gastro-esophageal reflux disease without esophagitis; E78.00 Pure hypercholesterolemia, unspecified; G47.30 Sleep apnea, unspecified; F41.9 Anxiety disorder, unspecified; F11.10 Opioid abuse, uncomplicated; Z95.1 Presence of aortocoronary bypass graft; Z90.710 Acquired absence of both cervix and uterus; Z89.519 Acquired absence of unspecified leg below knee; Z89.431 Acquired absence of right foot; Z79.82 Long term (current) use of aspirin; Z79.4 Long term (current) use of insulin; Z79.899 Other long term (current) drug therapy; Y83.5 Amputation of limb(s) as the cause of abnormal reaction of the patient, or of later complication, without mention of misadventure at the time of the procedure
CPT/HCPCS: 11042; 11043

== ENCOUNTER → 2019-06-26 | Outpatient (CLI) | payer OTHER ==
[~2019-06-26] MED LIST changes: +GABA-1216 PO; -GABA-529 PO
== END | disposition home or self-care (01) ==
LOC: HBOWC 08:44
PROVIDERS: ATTEND Podiatrist
DX: T87.89 Other complications of amputation stump (principal); E11.621 Type 2 diabetes mellitus with foot ulcer; L97.511 Non-pressure chronic ulcer of other part of right foot limited to breakdown of skin; L97.524 Non-pressure chronic ulcer of other part of left foot with necrosis of bone; E11.52 Type 2 diabetes mellitus with diabetic peripheral angiopathy with gangrene; I96 Gangrene, not elsewhere classified; I11.0 Hypertensive heart disease with heart failure; I50.9 Heart failure, unspecified; L84 Corns and callosities; E11.69 Type 2 diabetes mellitus with other specified complication; M86.8X7 Other osteomyelitis, ankle and foot; E78.5 Hyperlipidemia, unspecified; I25.10 Atherosclerotic heart disease of native coronary artery without angina pectoris; K21.9 Gastro-esophageal reflux disease without esophagitis; E78.00 Pure hypercholesterolemia, unspecified; G47.30 Sleep apnea, unspecified; F41.9 Anxiety disorder, unspecified; F11.10 Opioid abuse, uncomplicated; Z95.1 Presence of aortocoronary bypass graft; Z90.710 Acquired absence of both cervix and uterus; Z89.519 Acquired absence of unspecified leg below knee; Z89.431 Acquired absence of right foot; Z79.82 Long term (current) use of aspirin; Z79.4 Long term (current) use of insulin; Z79.899 Other long term (current) drug therapy; Y83.5 Amputation of limb(s) as the cause of abnormal reaction of the patient, or of later complication, without mention of misadventure at the time of the procedure
CPT/HCPCS: 11042

== ENCOUNTER → 2019-07-17 | Outpatient (CLI) | payer OTHER ==
[~2019-07-17] MED LIST changes: -LIDOCAINE 2% 5 ML JELLY TP ONE; +PANT-31 PO; -PANT40TA25 PO
== END | disposition home or self-care (01) ==
LOC: RADMN 12:21
PROVIDERS: ATTEND Podiatrist
DX: L97.529 Non-pressure chronic ulcer of other part of left foot with unspecified severity (principal); E11.621 Type 2 diabetes mellitus with foot ulcer; M86.8X0 Other osteomyelitis, multiple sites; M62.572 Muscle wasting and atrophy, not elsewhere classified, left ankle and foot; M25.475 Effusion, left foot; Z89.422 Acquired absence of other left toe(s)
CPT/HCPCS: 73718

== ENCOUNTER → 2019-07-17 | Outpatient (CLI) | payer OTHER | END | disposition home or self-care (01) | LOC: HBOWC 09:03 | PROVIDERS: ATTEND Podiatrist | DX: T87.89 Other complications of amputation stump (principal); E11.621 Type 2 diabetes mellitus with foot ulcer; L97.522 Non-pressure chronic ulcer of other part of left foot with fat layer exposed; E11.52 Type 2 diabetes mellitus with diabetic peripheral angiopathy with gangrene; I96 Gangrene, not elsewhere classified; I11.0 Hypertensive heart disease with heart failure; I50.9 Heart failure, unspecified; L84 Corns and callosities; E11.69 Type 2 diabetes mellitus with other specified complication; M86.8X7 Other osteomyelitis, ankle and foot; E78.5 Hyperlipidemia, unspecified; I25.10 Atherosclerotic heart disease of native coronary artery without angina pectoris; K21.9 Gastro-esophageal reflux disease without esophagitis; E78.00 Pure hypercholesterolemia, unspecified; G47.30 Sleep apnea, unspecified; F41.9 Anxiety disorder, unspecified; F11.10 Opioid abuse, uncomplicated; Z95.1 Presence of aortocoronary bypass graft; Z90.710 Acquired absence of both cervix and uterus; Z89.519 Acquired absence of unspecified leg below knee; Z89.431 Acquired absence of right foot; Z79.82 Long term (current) use of aspirin; Z79.4 Long term (current) use of insulin; Z79.899 Other long term (current) drug therapy; Y83.5 Amputation of limb(s) as the cause of abnormal reaction of the patient, or of later complication, without mention of misadventure at the time of the procedure | CPT/HCPCS: 11042 ==

== ENCOUNTER → 2019-07-24 | Outpatient (CLI) | payer OTHER ==
[~2019-07-24] MED LIST changes: +LIDOCAINE 2% 5 ML JELLY ONE
== END | disposition home or self-care (01) ==
LOC: HBOWC 08:46
PROVIDERS: ATTEND Podiatrist
DX: E11.621 Type 2 diabetes mellitus with foot ulcer (principal); L97.526 Non-pressure chronic ulcer of other part of left foot with bone involvement without evidence of necrosis; L97.511 Non-pressure chronic ulcer of other part of right foot limited to breakdown of skin; E11.52 Type 2 diabetes mellitus with diabetic peripheral angiopathy with gangrene; I96 Gangrene, not elsewhere classified; E11.69 Type 2 diabetes mellitus with other specified complication; M86.8X7 Other osteomyelitis, ankle and foot; M86.8X0 Other osteomyelitis, multiple sites; L84 Corns and callosities; E11.40 Type 2 diabetes mellitus with diabetic neuropathy, unspecified; K21.9 Gastro-esophageal reflux disease without esophagitis; E78.5 Hyperlipidemia, unspecified; I25.10 Atherosclerotic heart disease of native coronary artery without angina pectoris; I11.0 Hypertensive heart disease with heart failure; I50.9 Heart failure, unspecified; E78.00 Pure hypercholesterolemia, unspecified; G47.30 Sleep apnea, unspecified; F41.9 Anxiety disorder, unspecified; Z79.4 Long term (current) use of insulin; Z79.82 Long term (current) use of aspirin; Z95.1 Presence of aortocoronary bypass graft; Z90.710 Acquired absence of both cervix and uterus; Z89.422 Acquired absence of other left toe(s); Z89.431 Acquired absence of right foot; Z89.519 Acquired absence of unspecified leg below knee
CPT/HCPCS: 11042

== ENCOUNTER → 2019-07-31 | Outpatient (CLI) | payer OTHER ==
[~2019-07-31] MED LIST changes: -LIDOCAINE 2% 5 ML JELLY ONE
== END | disposition home or self-care (01) ==
LOC: HBOWC 08:56
PROVIDERS: ATTEND Podiatrist
DX: T87.89 Other complications of amputation stump (principal); E11.621 Type 2 diabetes mellitus with foot ulcer; L97.526 Non-pressure chronic ulcer of other part of left foot with bone involvement without evidence of necrosis; L97.511 Non-pressure chronic ulcer of other part of right foot limited to breakdown of skin; E11.40 Type 2 diabetes mellitus with diabetic neuropathy, unspecified; E11.52 Type 2 diabetes mellitus with diabetic peripheral angiopathy with gangrene; I96 Gangrene, not elsewhere classified; L84 Corns and callosities; E11.69 Type 2 diabetes mellitus with other specified complication; M86.172 Other acute osteomyelitis, left ankle and foot; M86.171 Other acute osteomyelitis, right ankle and foot; I25.10 Atherosclerotic heart disease of native coronary artery without angina pectoris; I11.0 Hypertensive heart disease with heart failure; I50.9 Heart failure, unspecified; M86.8X8 Other osteomyelitis, other site; M86.8X0 Other osteomyelitis, multiple sites; K21.9 Gastro-esophageal reflux disease without esophagitis; E78.5 Hyperlipidemia, unspecified; E78.00 Pure hypercholesterolemia, unspecified; G47.30 Sleep apnea, unspecified; F41.9 Anxiety disorder, unspecified; Z95.1 Presence of aortocoronary bypass graft; Z79.4 Long term (current) use of insulin; Z79.82 Long term (current) use of aspirin; Z90.710 Acquired absence of both cervix and uterus; Z89.519 Acquired absence of unspecified leg below knee; Y83.5 Amputation of limb(s) as the cause of abnormal reaction of the patient, or of later complication, without mention of misadventure at the time of the procedure
CPT/HCPCS: 11042

== ENCOUNTER → 2019-08-07 | Outpatient (CLI) | payer OTHER ==
[~2019-08-07] MED LIST changes: +LIDOCAINE 2% 5 ML JELLY ONE
== END | disposition home or self-care (01) ==
LOC: HBOWC 09:32
PROVIDERS: ATTEND Podiatrist
DX: T87.89 Other complications of amputation stump (principal); E11.621 Type 2 diabetes mellitus with foot ulcer; L97.522 Non-pressure chronic ulcer of other part of left foot with fat layer exposed; E11.40 Type 2 diabetes mellitus with diabetic neuropathy, unspecified; E11.52 Type 2 diabetes mellitus with diabetic peripheral angiopathy with gangrene; I96 Gangrene, not elsewhere classified; L84 Corns and callosities; E11.69 Type 2 diabetes mellitus with other specified complication; M86.172 Other acute osteomyelitis, left ankle and foot; M86.171 Other acute osteomyelitis, right ankle and foot; I25.10 Atherosclerotic heart disease of native coronary artery without angina pectoris; I11.0 Hypertensive heart disease with heart failure; I50.9 Heart failure, unspecified; M86.8X8 Other osteomyelitis, other site; M86.8X0 Other osteomyelitis, multiple sites; K21.9 Gastro-esophageal reflux disease without esophagitis; E78.5 Hyperlipidemia, unspecified; E78.00 Pure hypercholesterolemia, unspecified; G47.30 Sleep apnea, unspecified; F41.9 Anxiety disorder, unspecified; Z95.1 Presence of aortocoronary bypass graft; Z79.4 Long term (current) use of insulin; Y83.5 Amputation of limb(s) as the cause of abnormal reaction of the patient, or of later complication, without mention of misadventure at the time of the procedure
CPT/HCPCS: 11042

== ENCOUNTER → 2019-08-14 | Outpatient (CLI) | payer OTHER ==
[~2019-08-14] MED LIST changes: -LIDOCAINE 2% 5 ML JELLY ONE
== END | disposition home or self-care (01) ==
LOC: HBOWC 08:49
PROVIDERS: ATTEND Podiatrist
DX: T87.89 Other complications of amputation stump (principal); E11.621 Type 2 diabetes mellitus with foot ulcer; L97.522 Non-pressure chronic ulcer of other part of left foot with fat layer exposed; E11.40 Type 2 diabetes mellitus with diabetic neuropathy, unspecified; E11.52 Type 2 diabetes mellitus with diabetic peripheral angiopathy with gangrene; I96 Gangrene, not elsewhere classified; L84 Corns and callosities; E11.69 Type 2 diabetes mellitus with other specified complication; M86.172 Other acute osteomyelitis, left ankle and foot; M86.171 Other acute osteomyelitis, right ankle and foot; I25.10 Atherosclerotic heart disease of native coronary artery without angina pectoris; I50.9 Heart failure, unspecified; M86.8X8 Other osteomyelitis, other site; M86.8X0 Other osteomyelitis, multiple sites; K21.9 Gastro-esophageal reflux disease without esophagitis; E78.5 Hyperlipidemia, unspecified; E78.00 Pure hypercholesterolemia, unspecified; G47.30 Sleep apnea, unspecified; F41.9 Anxiety disorder, unspecified; Z95.1 Presence of aortocoronary bypass graft; Z79.4 Long term (current) use of insulin; Y83.5 Amputation of limb(s) as the cause of abnormal reaction of the patient, or of later complication, without mention of misadventure at the time of the procedure
CPT/HCPCS: 11042

== ENCOUNTER → 2019-12-18 | Outpatient (CLI) | payer OTHER ==
[~2019-12-18] MED LIST changes: +AMLO-258 PO; -AMLO10TA7 PO; +ASPE90C TP; +GABA-1181 PO; +MULT-1203 PO; -MULT-711 PO; +TRAZ-252 PO; +VIT1TABL66 PO
== END | disposition home or self-care (01) ==
LOC: HBOWC 09:50
PROVIDERS: ATTEND Podiatrist
DX: E11.621 Type 2 diabetes mellitus with foot ulcer (principal); L97.511 Non-pressure chronic ulcer of other part of right foot limited to breakdown of skin; E11.51 Type 2 diabetes mellitus with diabetic peripheral angiopathy without gangrene; E11.69 Type 2 diabetes mellitus with other specified complication; M86.172 Other acute osteomyelitis, left ankle and foot; M86.171 Other acute osteomyelitis, right ankle and foot; L84 Corns and callosities; K21.9 Gastro-esophageal reflux disease without esophagitis; E78.5 Hyperlipidemia, unspecified; E11.22 Type 2 diabetes mellitus with diabetic chronic kidney disease; I13.0 Hypertensive heart and chronic kidney disease with heart failure and stage 1 through stage 4 chronic kidney disease, or unspecified chronic kidney disease; I50.33 Acute on chronic diastolic (congestive) heart failure; N18.9 Chronic kidney disease, unspecified; I25.10 Atherosclerotic heart disease of native coronary artery without angina pectoris; G89.4 Chronic pain syndrome; E78.00 Pure hypercholesterolemia, unspecified; F32.9 Major depressive disorder, single episode, unspecified; F41.9 Anxiety disorder, unspecified; Z79.4 Long term (current) use of insulin; Z79.82 Long term (current) use of aspirin; Z89.422 Acquired absence of other left toe(s); Z89.412 Acquired absence of left great toe; Z89.421 Acquired absence of other right toe(s); Z90.49 Acquired absence of other specified parts of digestive tract; Z95.1 Presence of aortocoronary bypass graft; Z90.710 Acquired absence of both cervix and uterus
CPT/HCPCS: 11042

== ENCOUNTER → 2019-12-25 | Outpatient (CLI) | payer OTHER | END | disposition home or self-care (01) | LOC: HBOWC 13:13 | PROVIDERS: ATTEND Podiatrist | DX: T87.89 Other complications of amputation stump (principal); E11.621 Type 2 diabetes mellitus with foot ulcer; L97.422 Non-pressure chronic ulcer of left heel and midfoot with fat layer exposed; L97.511 Non-pressure chronic ulcer of other part of right foot limited to breakdown of skin; L97.521 Non-pressure chronic ulcer of other part of left foot limited to breakdown of skin; E11.69 Type 2 diabetes mellitus with other specified complication; M86.172 Other acute osteomyelitis, left ankle and foot; M86.171 Other acute osteomyelitis, right ankle and foot; E11.51 Type 2 diabetes mellitus with diabetic peripheral angiopathy without gangrene; K21.9 Gastro-esophageal reflux disease without esophagitis; E78.5 Hyperlipidemia, unspecified; E11.22 Type 2 diabetes mellitus with diabetic chronic kidney disease; I13.0 Hypertensive heart and chronic kidney disease with heart failure and stage 1 through stage 4 chronic kidney disease, or unspecified chronic kidney disease; I50.33 Acute on chronic diastolic (congestive) heart failure; N18.9 Chronic kidney disease, unspecified; I25.10 Atherosclerotic heart disease of native coronary artery without angina pectoris; E78.00 Pure hypercholesterolemia, unspecified; F32.9 Major depressive disorder, single episode, unspecified; F41.9 Anxiety disorder, unspecified; Z79.4 Long term (current) use of insulin; Z79.82 Long term (current) use of aspirin; Z95.1 Presence of aortocoronary bypass graft; Z90.710 Acquired absence of both cervix and uterus; Z89.412 Acquired absence of left great toe; Z90.49 Acquired absence of other specified parts of digestive tract; Y83.5 Amputation of limb(s) as the cause of abnormal reaction of the patient, or of later complication, without mention of misadventure at the time of the procedure | CPT/HCPCS: 11042 ==

== ENCOUNTER → 2020-01-01 | Outpatient (CLI) | payer OTHER ==
[~2020-01-01] MED LIST changes: +CHLORHEXIDINE GLUCONATE 4% 118 ML TOPICAL LIQUID TP ONE; +LIDOCAINE 2% 5 ML JELLY ONE
== END | disposition home or self-care (01) ==
LOC: HBOWC 10:51
PROVIDERS: ATTEND Podiatrist
DX: T87.89 Other complications of amputation stump (principal); E11.621 Type 2 diabetes mellitus with foot ulcer; L97.422 Non-pressure chronic ulcer of left heel and midfoot with fat layer exposed; L97.511 Non-pressure chronic ulcer of other part of right foot limited to breakdown of skin; L97.521 Non-pressure chronic ulcer of other part of left foot limited to breakdown of skin; E11.69 Type 2 diabetes mellitus with other specified complication; M86.172 Other acute osteomyelitis, left ankle and foot; M86.171 Other acute osteomyelitis, right ankle and foot; E11.51 Type 2 diabetes mellitus with diabetic peripheral angiopathy without gangrene; K21.9 Gastro-esophageal reflux disease without esophagitis; E78.5 Hyperlipidemia, unspecified; E11.22 Type 2 diabetes mellitus with diabetic chronic kidney disease; I13.0 Hypertensive heart and chronic kidney disease with heart failure and stage 1 through stage 4 chronic kidney disease, or unspecified chronic kidney disease; I50.33 Acute on chronic diastolic (congestive) heart failure; N18.9 Chronic kidney disease, unspecified; I25.10 Atherosclerotic heart disease of native coronary artery without angina pectoris; E78.00 Pure hypercholesterolemia, unspecified; F32.9 Major depressive disorder, single episode, unspecified; F41.9 Anxiety disorder, unspecified; G89.4 Chronic pain syndrome; L84 Corns and callosities; Z79.4 Long term (current) use of insulin; Z79.82 Long term (current) use of aspirin; Z95.1 Presence of aortocoronary bypass graft; Z90.710 Acquired absence of both cervix and uterus; Z90.49 Acquired absence of other specified parts of digestive tract; Y83.5 Amputation of limb(s) as the cause of abnormal reaction of the patient, or of later complication, without mention of misadventure at the time of the procedure
CPT/HCPCS: 11042; Z7610

== ENCOUNTER → 2020-01-08 | Outpatient (CLI) | payer OTHER ==
[~2020-01-08] MED LIST changes: -LIDOCAINE 2% 5 ML JELLY ONE; +LIDOCAINE 4% 50 ML SOLUTION TP ONE
== END | disposition home or self-care (01) ==
LOC: HBOWC 10:35
PROVIDERS: ATTEND Podiatrist
DX: T87.89 Other complications of amputation stump (principal); E11.621 Type 2 diabetes mellitus with foot ulcer; L97.422 Non-pressure chronic ulcer of left heel and midfoot with fat layer exposed; L97.512 Non-pressure chronic ulcer of other part of right foot with fat layer exposed; L97.522 Non-pressure chronic ulcer of other part of left foot with fat layer exposed; E11.69 Type 2 diabetes mellitus with other specified complication; M86.172 Other acute osteomyelitis, left ankle and foot; M86.171 Other acute osteomyelitis, right ankle and foot; E11.51 Type 2 diabetes mellitus with diabetic peripheral angiopathy without gangrene; E11.40 Type 2 diabetes mellitus with diabetic neuropathy, unspecified; E11.22 Type 2 diabetes mellitus with diabetic chronic kidney disease; I13.0 Hypertensive heart and chronic kidney disease with heart failure and stage 1 through stage 4 chronic kidney disease, or unspecified chronic kidney disease; I50.33 Acute on chronic diastolic (congestive) heart failure; N18.9 Chronic kidney disease, unspecified; K21.9 Gastro-esophageal reflux disease without esophagitis; E78.5 Hyperlipidemia, unspecified; L84 Corns and callosities; I25.10 Atherosclerotic heart disease of native coronary artery without angina pectoris; G89.4 Chronic pain syndrome; E78.00 Pure hypercholesterolemia, unspecified; F32.9 Major depressive disorder, single episode, unspecified; F41.9 Anxiety disorder, unspecified; Z79.4 Long term (current) use of insulin; Z79.82 Long term (current) use of aspirin; Z95.1 Presence of aortocoronary bypass graft; Z90.710 Acquired absence of both cervix and uterus; Z90.49 Acquired absence of other specified parts of digestive tract; Y83.5 Amputation of limb(s) as the cause of abnormal reaction of the patient, or of later complication, without mention of misadventure at the time of the procedure
CPT/HCPCS: 11042; Z7610

== ENCOUNTER → 2020-01-22 | Outpatient (CLI) | payer OTHER ==
[~2020-01-22] MED LIST changes: +LIDOCAINE 2% 5 ML JELLY TP ONE; -LIDOCAINE 4% 50 ML SOLUTION TP ONE
== END | disposition home or self-care (01) ==
LOC: HBOWC 10:29
PROVIDERS: ATTEND Podiatrist
DX: T87.89 Other complications of amputation stump (principal); E11.621 Type 2 diabetes mellitus with foot ulcer; L97.422 Non-pressure chronic ulcer of left heel and midfoot with fat layer exposed; L97.511 Non-pressure chronic ulcer of other part of right foot limited to breakdown of skin; L97.521 Non-pressure chronic ulcer of other part of left foot limited to breakdown of skin; E11.51 Type 2 diabetes mellitus with diabetic peripheral angiopathy without gangrene; E11.69 Type 2 diabetes mellitus with other specified complication; M86.172 Other acute osteomyelitis, left ankle and foot; M86.171 Other acute osteomyelitis, right ankle and foot; E11.40 Type 2 diabetes mellitus with diabetic neuropathy, unspecified; E11.22 Type 2 diabetes mellitus with diabetic chronic kidney disease; I13.0 Hypertensive heart and chronic kidney disease with heart failure and stage 1 through stage 4 chronic kidney disease, or unspecified chronic kidney disease; I50.33 Acute on chronic diastolic (congestive) heart failure; N18.9 Chronic kidney disease, unspecified; K21.9 Gastro-esophageal reflux disease without esophagitis; E78.5 Hyperlipidemia, unspecified; I25.10 Atherosclerotic heart disease of native coronary artery without angina pectoris; G89.4 Chronic pain syndrome; E78.00 Pure hypercholesterolemia, unspecified; F41.9 Anxiety disorder, unspecified; F32.9 Major depressive disorder, single episode, unspecified; Z79.4 Long term (current) use of insulin; Z79.82 Long term (current) use of aspirin; Z95.1 Presence of aortocoronary bypass graft; Z90.710 Acquired absence of both cervix and uterus; Z90.49 Acquired absence of other specified parts of digestive tract; Y83.5 Amputation of limb(s) as the cause of abnormal reaction of the patient, or of later complication, without mention of misadventure at the time of the procedure
CPT/HCPCS: 11042; Z7610

== ENCOUNTER → 2020-01-29 | Outpatient (CLI) | payer OTHER ==
[~2020-01-29] MED LIST changes: -CHLORHEXIDINE GLUCONATE 4% 118 ML TOPICAL LIQUID TP ONE
== END | disposition home or self-care (01) ==
LOC: HBOWC 10:32
PROVIDERS: ATTEND Podiatrist
DX: T87.89 Other complications of amputation stump (principal); E11.621 Type 2 diabetes mellitus with foot ulcer; L97.422 Non-pressure chronic ulcer of left heel and midfoot with fat layer exposed; L97.511 Non-pressure chronic ulcer of other part of right foot limited to breakdown of skin; L97.521 Non-pressure chronic ulcer of other part of left foot limited to breakdown of skin; E11.40 Type 2 diabetes mellitus with diabetic neuropathy, unspecified; E11.51 Type 2 diabetes mellitus with diabetic peripheral angiopathy without gangrene; E11.69 Type 2 diabetes mellitus with other specified complication; M86.172 Other acute osteomyelitis, left ankle and foot; M86.171 Other acute osteomyelitis, right ankle and foot; L84 Corns and callosities; E11.22 Type 2 diabetes mellitus with diabetic chronic kidney disease; I13.0 Hypertensive heart and chronic kidney disease with heart failure and stage 1 through stage 4 chronic kidney disease, or unspecified chronic kidney disease; I50.33 Acute on chronic diastolic (congestive) heart failure; N18.9 Chronic kidney disease, unspecified; K21.9 Gastro-esophageal reflux disease without esophagitis; E78.00 Pure hypercholesterolemia, unspecified; E78.5 Hyperlipidemia, unspecified; G89.4 Chronic pain syndrome; F41.9 Anxiety disorder, unspecified; F32.9 Major depressive disorder, single episode, unspecified; Z79.4 Long term (current) use of insulin; Z79.82 Long term (current) use of aspirin; Z90.710 Acquired absence of both cervix and uterus; Z90.49 Acquired absence of other specified parts of digestive tract; Z95.1 Presence of aortocoronary bypass graft; Y83.5 Amputation of limb(s) as the cause of abnormal reaction of the patient, or of later complication, without mention of misadventure at the time of the procedure
CPT/HCPCS: 11042; Z7610

== ENCOUNTER → 2020-02-05 | Outpatient (CLI) | payer OTHER ==
[~2020-02-05] MED LIST changes: -LIDOCAINE 2% 5 ML JELLY TP ONE
== END | disposition home or self-care (01) ==
LOC: HBOWC 09:28
PROVIDERS: ATTEND Podiatrist
DX: T87.89 Other complications of amputation stump (principal); E11.621 Type 2 diabetes mellitus with foot ulcer; L97.422 Non-pressure chronic ulcer of left heel and midfoot with fat layer exposed; L97.511 Non-pressure chronic ulcer of other part of right foot limited to breakdown of skin; L97.521 Non-pressure chronic ulcer of other part of left foot limited to breakdown of skin; E11.51 Type 2 diabetes mellitus with diabetic peripheral angiopathy without gangrene; L84 Corns and callosities; E11.69 Type 2 diabetes mellitus with other specified complication; M86.172 Other acute osteomyelitis, left ankle and foot; M86.171 Other acute osteomyelitis, right ankle and foot; E11.40 Type 2 diabetes mellitus with diabetic neuropathy, unspecified; E11.22 Type 2 diabetes mellitus with diabetic chronic kidney disease; I13.0 Hypertensive heart and chronic kidney disease with heart failure and stage 1 through stage 4 chronic kidney disease, or unspecified chronic kidney disease; I50.33 Acute on chronic diastolic (congestive) heart failure; N18.9 Chronic kidney disease, unspecified; E78.5 Hyperlipidemia, unspecified; K21.9 Gastro-esophageal reflux disease without esophagitis; E78.00 Pure hypercholesterolemia, unspecified; F41.9 Anxiety disorder, unspecified; F32.9 Major depressive disorder, single episode, unspecified; Z79.4 Long term (current) use of insulin; Z79.82 Long term (current) use of aspirin; Z95.1 Presence of aortocoronary bypass graft; Z90.710 Acquired absence of both cervix and uterus; Z90.49 Acquired absence of other specified parts of digestive tract; Y83.5 Amputation of limb(s) as the cause of abnormal reaction of the patient, or of later complication, without mention of misadventure at the time of the procedure
CPT/HCPCS: 11042

== ENCOUNTER → 2020-02-18 | Outpatient (CLI) | payer OTHER | END | disposition home or self-care (01) | LOC: HBOWC 09:51 | PROVIDERS: ATTEND Podiatrist | DX: T87.89 Other complications of amputation stump (principal); E11.621 Type 2 diabetes mellitus with foot ulcer; L97.422 Non-pressure chronic ulcer of left heel and midfoot with fat layer exposed; L97.511 Non-pressure chronic ulcer of other part of right foot limited to breakdown of skin; L97.521 Non-pressure chronic ulcer of other part of left foot limited to breakdown of skin; E11.51 Type 2 diabetes mellitus with diabetic peripheral angiopathy without gangrene; L84 Corns and callosities; E11.69 Type 2 diabetes mellitus with other specified complication; M86.172 Other acute osteomyelitis, left ankle and foot; M86.171 Other acute osteomyelitis, right ankle and foot; E11.40 Type 2 diabetes mellitus with diabetic neuropathy, unspecified; E11.22 Type 2 diabetes mellitus with diabetic chronic kidney disease; I13.0 Hypertensive heart and chronic kidney disease with heart failure and stage 1 through stage 4 chronic kidney disease, or unspecified chronic kidney disease; I50.33 Acute on chronic diastolic (congestive) heart failure; N18.9 Chronic kidney disease, unspecified; E78.5 Hyperlipidemia, unspecified; K21.9 Gastro-esophageal reflux disease without esophagitis; E78.00 Pure hypercholesterolemia, unspecified; F41.9 Anxiety disorder, unspecified; F32.9 Major depressive disorder, single episode, unspecified; G89.4 Chronic pain syndrome; I25.10 Atherosclerotic heart disease of native coronary artery without angina pectoris; Z79.4 Long term (current) use of insulin; Z79.82 Long term (current) use of aspirin; Z95.1 Presence of aortocoronary bypass graft; Z90.710 Acquired absence of both cervix and uterus; Z90.49 Acquired absence of other specified parts of digestive tract; Y83.5 Amputation of limb(s) as the cause of abnormal reaction of the patient, or of later complication, without mention of misadventure at the time of the procedure | CPT/HCPCS: 11042 ==